=== PATIENT | male | born 1980 | race African-American/Black ===

== ENCOUNTER 2016-06-08 01:30 | Emergency (ER) | payer OTHER ==
[~2016-06-08] VITALS: Ht 180.3 cm; Wt 113.7 kg
[2016-06-08 01:42] VITALS: TEMP 36.8; Ht 180.3 cm; Wt 113.7 kg
[2016-06-08 01:59] LABS: URINE APPEARANCE CLEAR (CLEAR); URINE BILIRUBIN NEG (NEG); URINE COLOR YELLOW; URINE NITRITE NEG (NEG); URINE PH 5.5 (4.5-7.5); URINE SPECIFIC GRAVITY 1.004 (1.000-1.030); UROBILINOGEN NEG (NEG); ZZUR CULT IF INDIC CLEAN CATCH NO
[2016-06-08 02:01] LABS: MANUAL MICROSCOPIC REQUIRED? NO; REVIEW REQ? NO
[2016-06-08] MEDS ORDERED: SULF800T23 PO (03:12)
[2016-06-08 03:17] VITALS: BP 146/90; PULSE 88; O2SAT 95
--- NOTE | 2016-06-10 12:17 | EMERGENCY ROOM VISIT NOTE ---
ED Visit Note First contact with patient: 01:45 CHIEF COMPLAINT: Frequent and painful urination HISTORY OF PRESENT ILLNESS: This 35 year old male presents to the emergency department complaining of increased frequency of urination, burning pain with urination, and a feeling of incomplete voiding. The patient passes very small volumes of urine with each episode of voiding. The patient does not have abdominal pain. They deny back pain, fever, or vaginal discharge. The patient has not frequent urinary tract infections in the past. Patient feels they are not at risk for STIs. REVIEW OF SYSTEMS: A 6 system review of systems was completed with positives and pertinent negatives listed in the HPI. ALLERGIES: No known allergies MEDICATIONS: No chronic medications PMH: Otherwise healthy SOCIAL HISTORY: and lives with family PHYSICAL EXAM: Vital Signs: Reviewed Nurse's notes, vital signs stable. GENERAL : Male, in no acute distress, they do not appear toxic, well-developed, well- nourished. ABDOMEN: Positive bowel sounds x 4. The abdomen is soft, mildly tender in the suprapubic area, but no masses or organs are felt. There is no CVA tenderness. The skin is clear. NEURO: Alert and oriented to person place and time. EMERGENCY DEPARTMENT COURSE: I examined the patient. His urine does not appear obviously infected. He does describe UTI symptoms. He does not feel that he is at risk for STDs, and does not wish for additional testing. I will provide him a 3 day course of Bactrim for presumed UTI. He is to follow-up with his primary care physician with any ongoing or persistent symptoms. Current/Historical Medications Scheduled Sulfamethoxazole-Trimethoprim (Bactrim Ds 800MG/160MG), 1 TAB PO BID Allergies Coded Allergies: No Known Allergies (Unverified , 06/08/16) Vital Signs Date Time Temp Pulse Resp B/P Pulse Ox O2 Delivery O2 Flow Rate FiO2 06/08/16 03:17 88 16 146/90 95 06/08/16 01:42 36.8 86 16 145/88 97 Room Air Laboratory Results Test 06/08/16 01:51 06/08/16 02:51 Urine Color YELLOW Urine Appearance CLEAR (CLEAR) Urine pH 5.5 (4.5-7.5) Urine Specific [place] 1.004 (1.000-1.030) Urine Protein NEG (NEG) Urine Glucose (UA) NEG (NEG) Urine Ketones NEG (NEG) Urine Occult Blood NEG (NEG) Urine Nitrite NEG (NEG) Urine Bilirubin NEG (NEG) Urine Urobilinogen NEG (NEG) Urine Leukocyte Esterase NEG (NEG) Bedside Glucose 101 mg/dl (70-99) Departure Information Impression Primary Impression: Symptoms involving urinary system Dispostion Home / Self-Care Condition GOOD Prescriptions Sulfamethoxazole-Trimethoprim (Bactrim Ds 800MG/160MG) 1 Tab Tab 1 TAB PO BID for 3 Days, #6 TAB Prov: Jay Jay Son PA-C 06/08/16 Referrals No Doctor, Assigned (PCP) Forms HOME CARE DOCUMENTATION FORM, IMPORTANT VISIT INFORMATION Patient Instructions A Signature Page, [facility] Additional Instructions You were seen and evaluated today on an emergency basis only. This is not a substitute for, or an effort to provide, complete comprehensive medical care. It is not possible to recognize and treat all injuries or illnesses in a single emergency department visit. For this reason it is recommended that you followup with your primary care physician next week for ongoing care and evaluation. Trimethoprim-Sulfamethoxazole(Bactrim DS): Take one pill twice daily for 3 days for your infection. All antibiotics can cause diarrhea. If this occurs and you feel worse or it does not resolve in 1-2 days follow up with your doctor or return to the Emergency Department as this could be signs of serious underlying problems. Any medication can cause an allergic reaction, stop the pills immediately and return to the ER for rash, hives, breathing difficulties, or swelling. You are welcome to return to the emergency department anytime with new, worsening, or concerning symptoms.
[2016-06-23] MEDS ORDERED: OXYC-57 PO (14:38)
[2016-06-23] MEDS ORDERED: URC10 PO (14:38)
[2016-06-23] MEDS ORDERED: SODI650T9 PO (14:38)
[2016-06-23] MEDS ORDERED: FLM4 PO (14:38)
[2016-06-23] MEDS ORDERED: ATV1 PO (14:38)
[2016-06-23] MEDS ORDERED: ALL100 PO (14:38)
== END 2016-06-08 03:18 | disposition home or self-care (01) ==
LOC: C.EDB 01:31 → C.EDA 03:18
DX: R35.0 Frequency of micturition (principal); R30.9 Painful micturition, unspecified; R39.89 Other symptoms and signs involving the genitourinary system

== ENCOUNTER 2016-06-19 09:15 | Inpatient (IN) | payer OTHER ==
[~2016-06-19] VITALS: Ht 180.3 cm; Wt 110.8 kg
[2016-06-19] MEDS ORDERED: SODIUM CHLORIDE 0.9% 1000ML 1,000 ML IV STA (09:53)
[2016-06-19] MEDS ORDERED: SODIUM CHLORIDE 0.9% 1000ML 500 ML IV STA (09:53)
--- NOTE | 2016-06-19 10:26 | DIAGNOSTIC IMAGING REPORT ---
CHEST ONE VIEW PORTABLE CLINICAL HISTORY: Flank pain and hematuria. COMPARISON STUDY: Chest radiograph October 31, 2006. FINDINGS: Lung volumes are normal. Lungs are clear. There is no pneumothorax or pleural effusion. Pulmonary vascularity is normal. Cardiac size is normal. Mediastinal contours are normal. IMPRESSION: No acute cardiopulmonary findings. Electronically signed by: Hemal Mcclain M.D. 06/19/2016 10:24 AM Dictated Date/Time: 06/19/2016 10:24 AM
--- NOTE | 2016-06-19 10:44 | DIAGNOSTIC IMAGING REPORT ---
CT HEAD WITHOUT CONTRAST (CT) CLINICAL HISTORY: HEADACHE COMPARISON STUDY: CT scan dated 09/10/2009 TECHNIQUE: Axial CT of the brain is performed from the vertex to the skull base. IV contrast was not administered for this examination. CT DOSE: 638.56 mGycm FINDINGS: No intra or extra-axial mass lesions are visualized. There is no CT evidence of acute cortical infarction. There is no evidence of midline shift. There is no acute hemorrhage. No calvarial fractures are visualized. The previously described 5 mm focus of decreased attenuation within the right frontal white matter is not clearly visualized on the current study There is no evidence of pathologic ventricular dilatation. There is no evidence of acute sinusitis IMPRESSION: No acute intracranial findings Electronically signed by: Tony Montes M.D. 06/19/2016 10:42 AM Dictated Date/Time: 06/19/2016 10:41 AM
--- NOTE | 2016-06-19 10:50 | DIAGNOSTIC IMAGING REPORT ---
CT SCAN OF THE ABDOMEN AND PELVIS WITHOUT IV CONTRAST CLINICAL HISTORY: Flank pain and hematuria. COMPARISON STUDY: No priors. TECHNIQUE: CT scan of the abdomen and pelvis is performed from the lung bases to the proximal femora. Images are reviewed in the axial, sagittal, and coronal planes. IV contrast was not administered for this examination. Automated dose control exposure was utilized. CT DOSE: 1049.33 mGycm FINDINGS: Lung bases: The heart is top normal in size and without pericardial effusion. There is no airspace consolidation or pleural effusion. A 4 mm pleural-based nodule in the right lower lobe and a 3 mm pleural-based nodule in the right middle lobe are seen on images #11. These are of doubtful significance in this age group. There is a small hiatal hernia. Liver: The unenhanced liver is enlarged, measuring 22 cm in length. The liver demonstrates diffusely diminished attenuation consistent with hepatic steatosis. There is no intrahepatic biliary ductal dilatation. Gallbladder: Unremarkable. Spleen: The spleen is enlarged, measuring 14.6 cm in length. Pancreas: Unremarkable. Adrenal glands: Unremarkable. Kidneys: The unenhanced kidneys are normal in size. There is a 10 mm obstructing calculus in the distal left ureter located approximately 2.5 cm above the vesicoureteral junction. This is best seen on axial image #432, and this causes mild left hydroureteronephrosis. There are least 2 additional nonobstructing left renal calculi measuring up to 5 mm. A 3 mm nonobstructing calculus is seen in the right upper pole. There is no right-sided hydronephrosis. There is no evidence of contour deforming renal mass lesion. Abdominal vasculature: The abdominal aorta is normal in course and caliber. Bowel: The small bowel and colon are normal in course and caliber. The appendix is well-visualized and normal. Peritoneum: There is no intraperitoneal free air or abdominal ascites. There is a small fat-containing umbilical hernia. Lymphadenopathy: There is bulky upper abdominal, retroperitoneal, and iliac chain lymphadenopathy. A gastrohepatic node on image #129 measures 1.5 x 2.8 cm. A lymph node in the davy hepatis on image #170 measures 2.8 x 2.5 cm. A left periaortic node on image #258 measures 3.2 x 1.6 cm, and a right iliac chain node on image #320 measures 3.3 x 2.2 cm. A right external iliac chain node on image #444 measures 3.2 x 1.7 cm. There are numerous mildly enlarged mesenteric nodes. A node on image #187 measures 1.5 x 1.2 cm. Mildly enlarged pelvic sidewall nodes are identified. A left pelvic sidewall node on image #1423 measures 1.5 x 1.1 cm. No pathologically enlarged inguinal lymph nodes are identified. Pelvic viscera: The bladder, prostate, and seminal vesicles are normal as visualized. There is a fat-containing right inguinal hernia. Skeletal structures: No lytic or blastic lesions are seen. IMPRESSION: 1. There is a 10 mm obstructing calculus in the distal left ureter approximately 2.5 cm above the vesicoureteral junction. This causes mild left hydroureteronephrosis. 2. Additional bilateral nonobstructing renal calculi as above. 3. Bulky abdominopelvic lymphadenopathy as above, greatest involving the upper abdominal, retroperitoneal, and iliac chains. The appearance is highly concerning for a lymphoproliferative disorder. 4. Splenomegaly. 5. Hepatomegaly and hepatic steatosis. 6. Additional changes as above. Electronically signed by: Aleksandr Hunter M.D. 06/19/2016 10:48 AM Dictated Date/Time: 06/19/2016 10:37 AM
[2016-06-19 10:51] LABS: BASO % 0.2 %; BASO ABS # 0.01 K/uL (0-0.2); EOS % 10.5 %; HEMATOCRIT 42.8 % (42-52); IG% 0.6 %; LYMPH % 32.4 %; LYMPH ABS # 2.12 K/uL (1.2-3.4); MEAN CELL VOLUME 72.8 fL (80-100); MEAN CORPUSCULAR HEMOGLOBIN 25.5 pg (25-34); MEAN PLATELET VOLUME 10.4 fL (7.4-10.4); NEUT % 43.3 %; PLATELET COUNT 231 K/uL (130-400); RED BLOOD COUNT 5.88 M/uL (4.7-6.1); WHITE BLOOD COUNT 6.55 K/uL (4.8-10.8)
[2016-06-19 11:11] LABS: URINE APPEARANCE CLEAR (CLEAR); URINE BILIRUBIN NEG (NEG); URINE COLOR YELLOW; URINE NITRITE NEG (NEG); URINE SPECIFIC GRAVITY 1.021 (1.000-1.030); UROBILINOGEN NEG (NEG); ZZUR CULT IF INDIC CLEAN CATCH NO
[2016-06-19 11:11] LABS: BUN/CREATININE RATIO 14.8 (10-20); CALCIUM 9.4 mg/dl (8.5-10.1); MAGNESIUM 2.1 mg/dl (1.8-2.4); POTASSIUM 3.8 mmol/L (3.5-5.1)
[2016-06-19 11:18] LABS: MANUAL MICROSCOPIC REQUIRED? NO; REVIEW REQ? NO
[2016-06-19 11:19] LABS: ALB/GLOB RATIO 0.9 (0.9-2); THYROID STIMULATING HORMONE 4.78 uIu/ml (0.300-4.500)
[2016-06-19 11:24] LABS: COMPLETE YES
[2016-06-19] MEDS ORDERED: ZOLPIDEM TARTRATE 5 MG TAB PO PRN (11:45)
[2016-06-19] MEDS ORDERED: ALUMINUM/MAGNESIUM/SIMETH (MAALOX MAX) 30 ML UDC PO PRN (11:45)
[2016-06-19] MEDS ORDERED: MAGNESIUM HYDROXIDE SUSP 30 ML UDC PO PRN (11:45)
[2016-06-19] MEDS ORDERED: ACETAMINOPHEN 325 MG TAB PO PRN (11:45)
[2016-06-19] MEDS ORDERED: MoRPHine SULFATE 2 MG/ML CARP IV PRN (11:45)
[2016-06-19] MEDS ORDERED: ONDANSETRON INJ 2 MG/ML 2 ML VIAL IV PRN (11:45)
[2016-06-19 11:53] LABS: LYME DISEASE AB IGG NEG (NEG); LYME DISEASE AB IGM NEG (NEG)
--- NOTE | 2016-06-19 12:12 | History and Physical ---
History & Physical Date & Time of Service: Jun 19, 2016 at 12:08 Chief Complaint: Kidney Stones Primary Care Physician: No Doctor, Assigned History of Present Illness Source: patient, hospital records 35 year old male with non-significant past medical history who presents to the ER with chief complaint of intermittent stabbing pains to his right back since passing a kidney stone last week. Currently, while resting, the patient denies being in significant discomfort, however his pain is exacerbated with standing, and reaches a 7/10 on the pain scale of 0-10. Prior to passing the kidney stone last week, patient visited the ED on June 08 as he was having dysuria and urinary retention. Patient was placed on Bactrim for presumed UTI at that time, but he did not have any imaging done. The patient states that he did take the Bactrim & recently passed first kidney stone last week. He has been experiencing abdominal pain/cramps, back spasms, Vague numbness/ tingling of the upper & lower extremities especially at night time. Denied any recent travel. Social History Smoking Status: Never Smoker Drug Use: none Occupational Status: employed [employer] History of MDRO: No Allergies Coded Allergies: No Known Allergies (Unverified , 06/19/16) Home Medications No Active Prescriptions or Reported Meds Review of Systems See HPI for pertinent positives & negatives. A total of 10 systems reviewed and were otherwise negative. Physical Exam Vital Signs Date Time Temp Pulse Resp B/P Pulse Ox O2 Delivery O2 Flow Rate FiO2 06/19/16 11:19 63 20 113/64 96 Room Air 06/19/16 09:18 37.0 72 18 130/86 98 Room Air Diagnostics Laboratory Results Results Past 24 Hours Test 06/19/16 10:00 06/19/16 10:15 Range/Units Urine Color YELLOW Urine Appearance CLEAR CLEAR Urine pH 5.0 4.5-7.5 Urine Specific [place] 1.021 1.000-1.030 Urine Protein NEG NEG Urine Glucose (UA) NEG NEG Urine Ketones TRACE NEG Urine Occult Blood NEG NEG Urine Nitrite NEG NEG Urine Bilirubin NEG NEG Urine Urobilinogen NEG NEG Urine Leukocyte Esterase TRACE NEG Urine WBC (Auto) 1-5 0-5 /hpf Urine RBC (Auto) 0-4 0-4 /hpf Urine Hyaline Casts (Auto) 5-10 0-5 /lpf Urine Epithelial Cells (Auto) 10-20 0-5 /lpf Urine Bacteria (Auto) NEG NEG White Blood Count 6.55 4.8-10.8 K/uL Red Blood Count 5.88 4.7-6.1 M/uL Hemoglobin 15.0 14.0-18.0 g/dL Hematocrit 42.8 42-52 % Mean Corpuscular Volume 72.8 80-100 fL Mean Corpuscular Hemoglobin 25.5 25-34 pg Mean Corpuscular Hemoglobin Concent 35.0 32-36 g/dl Platelet Count 231 130-400 K/uL Mean Platelet Volume 10.4 7.4-10.4 fL Neutrophils (%) (Auto) 43.3 % Lymphocytes (%) (Auto) 32.4 % Monocytes (%) (Auto) 13.0 % Eosinophils (%) (Auto) 10.5 % Basophils (%) (Auto) 0.2 % Neutrophils # (Auto) 2.84 1.4-6.5 K/uL Lymphocytes # (Auto) 2.12 1.2-3.4 K/uL Monocytes # (Auto) 0.85 0.11-0.59 K/uL Eosinophils # (Auto) 0.69 0-0.5 K/uL Basophils # (Auto) 0.01 0-0.2 K/uL RDW Standard Deviation 37.0 36.4-46.3 fL RDW Coefficient of Variation 14.0 11.5-14.5 % Immature Granulocyte % (Auto) 0.6 % Immature Granulocyte # (Auto) 0.04 0.00-0.02 K/uL Red Blood Cell Morphology Unremarkable Erythrocyte Sedimentation Rate 18 0-14 mm/hr Sodium Level 139 136-145 mmol/L Potassium Level 3.8 3.5-5.1 mmol/L Chloride Level 103 98-107 mmol/L Carbon Dioxide Level 26 21-32 mmol/L Anion Gap 10.0 3-11 mmol/L Blood Urea Nitrogen 15 7-18 mg/dl Creatinine 1.00 0.60-1.40 mg/dl Est Creatinine Clear Calc Drug Dose 131.7 ml/min Estimated GFR () 113.3 Estimated GFR (Non- 97.8 BUN/Creatinine Ratio 14.8 10-20 Random Glucose 91 70-99 mg/dl Calcium Level 9.4 8.5-10.1 mg/dl Magnesium Level 2.1 1.8-2.4 mg/dl Total Bilirubin 0.4 0.2-1 mg/dl Aspartate Amino Transf (AST/SGOT) 43 15-37 U/L Alanine Aminotransferase (ALT/SGPT) 52 12-78 U/L Alkaline Phosphatase 91 45-117 U/L Troponin I 0.018 0-0.045 ng/ml Total Protein 8.6 6.4-8.2 gm/dl Albumin 4.1 3.4-5.0 gm/dl Globulin 4.5 2.5-4.0 gm/dl Albumin/Globulin Ratio 0.9 0.9-2 Lipase 235 73-393 U/L Thyroid Stimulating Hormone (TSH) 4.780 0.300-4.500 uIu/ml Free Thyroxine 1.04 0.80-1.60 ng/dl Lyme Disease IgG Antibody NEG NEG Lyme Disease IgM Antibody NEG NEG Microbiology Results 06/19/16 Urine Culture, Received Pending Diagnostic Radiology CT HEAD WITHOUT CONTRAST (CT) CLINICAL HISTORY: HEADACHE COMPARISON STUDY: CT scan dated 09/10/2009 FINDINGS: No intra or extra-axial mass lesions are visualized. There is no CT evidence of acute cortical infarction. There is no evidence of midline shift. There is no acute hemorrhage. No calvarial fractures are visualized. The previously described 5 mm focus of decreased attenuation within the right frontal white matter is not clearly visualized on the current study There is no evidence of pathologic ventricular dilatation. There is no evidence of acute sinusitis IMPRESSION: No acute intracranial findings CHEST ONE VIEW PORTABLE CLINICAL HISTORY: Flank pain and hematuria. COMPARISON STUDY: Chest radiograph October 31, 2006. FINDINGS: Lung volumes are normal. Lungs are clear. There is no pneumothorax or pleural effusion. Pulmonary vascularity is normal. Cardiac size is normal. Mediastinal contours are normal. IMPRESSION: No acute cardiopulmonary findings. CT SCAN OF THE ABDOMEN AND PELVIS WITHOUT IV CONTRAST CLINICAL HISTORY: Flank pain and hematuria. COMPARISON STUDY: No priors. FINDINGS: Lung bases: The heart is top normal in size and without pericardial effusion.There is no airspace consolidation or pleural effusion. A 4 mm pleural- based nodule in the right lower lobe and a 3 mm pleural-based nodule in the right middle lobe are seen on images #11. These are of doubtful significance in this age group. There is a small hiatal hernia. Liver: The unenhanced liver is enlarged, measuring 22 cm in length. The liver demonstrates diffusely diminished attenuation consistent with hepatic steatosis. There is no intrahepatic biliary ductal dilatation. Gallbladder: Unremarkable. Spleen: The spleen is enlarged, measuring 14.6 cm in length. Pancreas: Unremarkable. Adrenal glands: Unremarkable. Kidneys: The unenhanced kidneys are normal in size. There is a 10 mm obstructing calculus in the distal left ureter located approximately 2.5 cm above the vesicoureteral junction. This is best seen on axial image #432, and this causes mild left hydroureteronephrosis. There are least 2 additional nonobstructing left renal calculi measuring up to 5 mm. A 3 mm nonobstructing calculus is seen in the right upper pole. There is no right-sided hydronephrosis. There is no evidence of contour deforming renal mass lesion. Abdominal vasculature: The abdominal aorta is normal in course and caliber. Bowel: The small bowel and colon are normal in course and caliber. The appendix is well-visualized and normal. Peritoneum: There is no intraperitoneal free air or abdominal ascites. There is a small fat-containing umbilical hernia. Lymphadenopathy: There is bulky upper abdominal, retroperitoneal, and iliac chain lymphadenopathy. A gastrohepatic node on image #129 measures 1.5 x 2.8 cm. A lymph node in the davy hepatis on image #170 measures 2.8 x 2.5 cm. A left periaortic node on image #258 measures 3.2 x 1.6 cm, and a right iliac chain node on image #320 measures 3.3 x 2.2 cm. A right external iliac chain node on image #444 measures 3.2 x 1.7 cm. There are numerous mildly enlarged mesenteric nodes. A node on image #187 measures 1.5 x 1.2 cm. Mildly enlarged pelvic sidewall nodes are identified. A left pelvic sidewall node on image # 1423 measures 1.5 x 1.1 cm. No pathologically enlarged inguinal lymph nodes are identified. Pelvic viscera: The bladder, prostate, and seminal vesicles are normal as visualized. There is a fat-containing right inguinal hernia. Skeletal structures: No lytic or blastic lesions are seen. IMPRESSION: 1. There is a 10 mm obstructing calculus in the distal left ureter approximately 2.5 cm above the vesicoureteral junction. This causes mild left hydroureteronephrosis. 2. Additional bilateral nonobstructing renal calculi as above. 3. Bulky abdominopelvic lymphadenopathy as above, greatest involving the upper abdominal, retroperitoneal, and iliac chains. The appearance is highly concerning for a lymphoproliferative disorder. 4. Splenomegaly. 5. Hepatomegaly and hepatic steatosis. 6. Additional changes as above. CXR normal Impression Assessment and Plan Left Sided Obstructing Renal Stone: Admit to medical floor. -Started IVF -Pain medications as per need -Started Rocephin empirically as will be going for Urology procedure -Urology consultation Bulky Abdominopelvic Lymphadenopathy: Highly suspicious for Lymphoma. -Ordered CT Chest asa well. -Involve Hematology/Oncology as needed -No family history of lymphoma -Ordered Ct Chest -Check Uric acid Patient will be followed by Dr. Baker. Level of Care Med/Surg Resuscitation Status FULL RESUSCITATION VTE Prophylaxis VTE Risk Assessment Done? Y/N: Yes Risk Level: Low Given or contraindicated: SCD's
[2016-06-19 12:30] VITALS: BP 143/88; PULSE 73; TEMP 36.7; O2SAT 99
--- NOTE | 2016-06-19 12:32 | EMERGENCY ROOM VISIT NOTE ---
History Report prepared by Enedina: Kavya Strong Under the Supervision of: Dr. Aleksandr Hay M.D. First contact with patient: 09:51 Chief Complaint: OTHER COMPLAINT Stated Complaint: KIDNEY STONES History of Present Illness The patient is a 35 year old male who presents to the Emergency Room with complaints of intermittent stabbing pains to his right back since passing a kidney stone last week. Currently, while resting, the patient denies being in significant discomfort, however his pain seems to be exacerbated with standing, and reaches a 7/10 on the pain scale. Prior to passing the kidney stone last week, patient visited the ED on June 08 as he was having dysuria and urinary retention. Patient was placed on Bactrim for presumed UTI at that time, but he did not have any imaging done. After returning home, patient states that he passed a kidney stone a few days later, which he thought may have have been causing his urinary symptoms. However, though he had passed the stone, he then developed intermittent stabbing pains to his right back, as well as sharp pains to his right abdomen. Over the past week, the patient also notes that he has been experiencing intermittent burning/tingling pains radiating from his right knee, down to his right foot, as well as his left foot. He has noticed these symptoms to be exacerbated after eating, and then persist throughout the night, making it difficult for him to sleep. Patient also notes that this morning, he experienced an episode of numbness radiating from his left neck, down to his left waist, and it became difficult for him to swallow at that time as well. These symptoms lasted for about an hour and a half before resolving on their own. Patient states that he has felt nauseous, but he denies vomiting or passing any movements of diarrhea. He also denies fevers, chills, chest pain, shortness of breath, or swelling to his extremities. Patient denies possibility of having any tick bites as he does not spend time outside. He denies family history of kidney stones and states that the one he passed last week was the first one he had experienced. Source of History: patient Onset: over the past week Position: back (right) Symptom Intensity: no current pain Quality: stabbing Timing: intermittent Modifying Factors (Worsening): other (standing) Associated Symptoms: + nausea, + numbness (left neck - left waist. Right knee-right foot and left foot. ), + urinary symptoms, No SOB, No chest pain, No chills, No diarrhea, No fevers, No vomiting Note: Patient had difficulty swallowing this morning, now resolved. Review of Systems See HPI for pertinent positives & negatives. A total of 10 systems reviewed and were otherwise negative. Past Medical & Surgical No known past medical problems. Social History Smoking Status: Never Smoker Drug Use: none Marital Status: Housing Status: lives with family Occupation Status: employed Current/Historical Medications No Active Prescriptions or Reported Meds Allergies Coded Allergies: No Known Allergies (Unverified , 06/19/16) Physical Exam Vital Signs Date Time Temp Pulse Resp B/P Pulse Ox O2 Delivery O2 Flow Rate FiO2 06/19/16 11:19 63 20 113/64 96 Room Air 06/19/16 09:18 37.0 72 18 130/86 98 Room Air Physical Exam GENERAL: Patient is in no acute distress. HEENT: No acute trauma, normocephalic atraumatic, mucous membranes moist, no nasal congestion, no scleral icterus. NECK: No stridor, no adenopathy, no meningismus, trachea is midline. LUNGS: Clear to auscultation bilaterally, no wheeze, no rhonchi, breath sounds equal. HEART: Without murmurs gallops or rubs, regular rate and rhythm. ABDOMEN: Soft, nontender, bowel sounds positive, no hernias, no peritonitis. EXTREMITIES: No cyanosis or edema, full range of motion of all the joints without pain or difficulty, no signs for acute trauma. Strong dorsalis pedis pulses, bilaterally. NEUROLOGIC: Oriented x 3, no acute motor or sensory deficits, no focal weakness. Cannot elicit reflexes in either knee. 2/4 Achilles reflexes, bilaterally. SKIN: No rash, no jaundice, no diaphoresis. Medical Decision & Procedures ER Provider Diagnostic Interpretation: CT results as stated below per my review and radiologist interpretation: X-ray results as stated below per interpretation by me and the radiologist: CT HEAD WITHOUT CONTRAST (CT) CLINICAL HISTORY: HEADACHE COMPARISON STUDY: CT scan dated 09/10/2009 TECHNIQUE: Axial CT of the brain is performed from the vertex to the skull base. IV contrast was not administered for this examination. CT DOSE: 638.56 mGycm FINDINGS: No intra or extra-axial mass lesions are visualized. There is no CT evidence of acute cortical infarction. There is no evidence of midline shift. There is no acute hemorrhage. No calvarial fractures are visualized. The previously described 5 mm focus of decreased attenuation within the right frontal white matter is not clearly visualized on the current study There is no evidence of pathologic ventricular dilatation. There is no evidence of acute sinusitis IMPRESSION: No acute intracranial findings Electronically signed by: Tony Montes M.D. 06/19/2016 10:42 AM Dictated Date/Time: 06/19/2016 10:41 AM CHEST ONE VIEW PORTABLE CLINICAL HISTORY: Flank pain and hematuria. COMPARISON STUDY: Chest radiograph October 31, 2006. FINDINGS: Lung volumes are normal. Lungs are clear. There is no pneumothorax or pleural effusion. Pulmonary vascularity is normal. Cardiac size is normal. Mediastinal contours are normal. IMPRESSION: No acute cardiopulmonary findings. Electronically signed by: Hemal Mcclain M.D. 06/19/2016 10:24 AM Dictated Date/Time: 06/19/2016 10:[address] SCAN OF THE ABDOMEN AND PELVIS WITHOUT IV CONTRAST CLINICAL HISTORY: Flank pain and hematuria. COMPARISON STUDY: No priors. TECHNIQUE: CT scan of the abdomen and pelvis is performed from the lung bases to the proximal femora. Images are reviewed in the axial, sagittal, and coronal planes. IV contrast was not administered for this examination. Automated dose control exposure was utilized. CT DOSE: 1049.33 mGycm FINDINGS: Lung bases: The heart is top normal in size and without pericardial effusion. There is no airspace consolidation or pleural effusion. A 4 mm pleural-based nodule in the right lower lobe and a 3 mm pleural-based nodule in the right middle lobe are seen on images #11. These are of doubtful significance in this age group. There is a small hiatal hernia. Liver: The unenhanced liver is enlarged, measuring 22 cm in length. The liver demonstrates diffusely diminished attenuation consistent with hepatic steatosis. There is no intrahepatic biliary ductal dilatation. Gallbladder: Unremarkable. Spleen: The spleen is enlarged, measuring 14.6 cm in length. Pancreas: Unremarkable. Adrenal glands: Unremarkable. Kidneys: The unenhanced kidneys are normal in size. There is a 10 mm obstructing calculus in the distal left ureter located approximately 2.5 cm above the vesicoureteral junction. This is best seen on axial image #432, and this causes mild left hydroureteronephrosis. There are least 2 additional nonobstructing left renal calculi measuring up to 5 mm. A 3 mm nonobstructing calculus is seen in the right upper pole. There is no right-sided hydronephrosis. There is no evidence of contour deforming renal mass lesion. Abdominal vasculature: The abdominal aorta is normal in course and caliber. Bowel: The small bowel and colon are normal in course and caliber. The appendix is well-visualized and normal. Peritoneum: There is no intraperitoneal free air or abdominal ascites. There is a small fat-containing umbilical hernia. Lymphadenopathy: There is bulky upper abdominal, retroperitoneal, and iliac chain lymphadenopathy. A gastrohepatic node on image #129 measures 1.5 x 2.8 cm. A lymph node in the davy hepatis on image #170 measures 2.8 x 2.5 cm. A left periaortic node on image #258 measures 3.2 x 1.6 cm, and a right iliac chain node on image #320 measures 3.3 x 2.2 cm. A right external iliac chain node on image #444 measures 3.2 x 1.7 cm. There are numerous mildly enlarged mesenteric nodes. A node on image #187 measures 1.5 x 1.2 cm. Mildly enlarged pelvic sidewall nodes are identified. A left pelvic sidewall node on image #1423 measures 1.5 x 1.1 cm. No pathologically enlarged inguinal lymph nodes are identified. Pelvic viscera: The bladder, prostate, and seminal vesicles are normal as visualized. There is a fat-containing right inguinal hernia. Skeletal structures: No lytic or blastic lesions are seen. IMPRESSION: 1. There is a 10 mm obstructing calculus in the distal left ureter approximately 2.5 cm above the vesicoureteral junction. This causes mild left hydroureteronephrosis. 2. Additional bilateral nonobstructing renal calculi as above. 3. Bulky abdominopelvic lymphadenopathy as above, greatest involving the upper abdominal, retroperitoneal, and iliac chains. The appearance is highly concerning for a lymphoproliferative disorder. 4. Splenomegaly. 5. Hepatomegaly and hepatic steatosis. 6. Additional changes as above. Electronically signed by: Aleksandr Hunter M.D. 06/19/2016 10:48 AM Dictated Date/Time: 06/19/2016 10:37 AM Laboratory Results Test 06/19/16 10:00 06/19/16 10:15 Urine WBC (Auto) 1-5 /hpf (0-5) Urine RBC (Auto) 0-4 /hpf (0-4) Urine Hyaline Casts (Auto) 5-10 /lpf (0-5) Urine Epithelial Cells (Auto) 10-20 /lpf (0-5) Urine Bacteria (Auto) NEG (NEG) Erythrocyte Sedimentation Rate 18 mm/hr (0-14) Uric Acid 7.4 mg/dl (2.6-7.2) Total Bilirubin 0.4 mg/dl (0.2-1) Aspartate Amino Transf (AST/SGOT) 43 U/L (15-37) Alanine Aminotransferase (ALT/SGPT) 52 U/L (12-78) Alkaline Phosphatase 91 U/L (45-117) Troponin I 0.018 ng/ml (0-0.045) Total Protein 8.6 gm/dl (6.4-8.2) Albumin 4.1 gm/dl (3.4-5.0) Globulin 4.5 gm/dl (2.5-4.0) Albumin/Globulin Ratio 0.9 (0.9-2) Lipase 235 U/L (73-393) Thyroid Stimulating Hormone (TSH) 4.780 uIu/ml (0.300-4.500) Free Thyroxine 1.04 ng/dl (0.80-1.60) Lyme Disease IgG Antibody NEG (NEG) Lyme Disease IgM Antibody NEG (NEG) Laboratory results reviewed by me. Medications Administered Medications (Trade) Dose Ordered Sig/Billy Route Start Time Stop Time Status Last Admin Dose Admin Sodium Chloride 500 ml @ 999 mls/hr Q31M STAT IV 06/19/16 09:53 06/19/16 10:23 DC 06/19/16 10:40 999 MLS/HR Sodium Chloride (Nss 1000ml) 1,000 ml @ 200 mls/hr Q5H STAT IV 06/19/16 09:53 06/19/16 13:19 DC 06/19/16 10:40 200 MLS/HR ECG Indication: other Rate (beats per minute): 69 Rhythm: sinus rhythm Findings: 1st degree AV block, no acute ischemic change, no ectopy, other (Non specific T wave changes.) ED Course 0952: The patient was evaluated in room C4. A complete history and physical exam was performed. 0953: NSS 1,000 ml @ 200 mls/hr IV and NSS 500 ml @ 999 mls/hr IV were ordered. 1122: Upon reevaluation, the patient appeared to be resting comfortably. I updated him on the results of his radiology reports and lab tests. The hospitalist will be contacted. 1135: After discussion with Dr. Thakkar, the patient will continue to be evaluated by the [facility] hospitalist for further management. The patient verbalized his understanding and agreement with this treatment plan. Medical Decision The patient is a 35 year old male who presents to the ED with complaints of intermittent stabbing pains to his right back. Differential diagnoses considered include renal colic, electrolyte imbalance, anemia, renal failure, malignancy, infection, MS, transverse myelitis, stroke, thyroid disorder. There is no leukocytosis or concerning anemia. No significant electrolyte abnormality, kidney failure, hepatitis. The patient appears to be in a euthyroid state. Sedimentation rate is not significantly elevated. Urinalysis does not show infection or significant hematuria. Lyme disease testing was negative. Brain CT shows no acute bleed or mass effect. Chest film shows no pneumonia or mediastinal widening. EKG shows a sinus rhythm, no ischemia. Cardiac enzyme testing 1 is not consistent with acute cardiac injury. Abdominal and pelvis CT shows a large left sided ureteral stone. Lymphadenopathy was also noted within the abdomen. The patient received IV saline, he is resting comfortably. He has not required anything for pain. The patient has a very large left ureteral stone. This may explain some of his trouble. The marked lymph gland enlargement about the abdomen I think could explain some of his other symptoms and complaints. Given the findings, further workup in the hospital is required. I spoke to the patient, I talked with the nurse case management. The on-call hospitalist was consulted. Consults Time Called: 112 Consulting Physician: Dr. Thakkar - [facility] Returned Call: [phone] Discussed the patient's case. He will continue to be evaluated by the [facility] hospitalist for further management. Impression Primary Impression: Renal colic Additional Impression: Intra-abdominal lymphadenopathy Scribe Attestation The scribe's documentation has been prepared under my direction and personally reviewed by me in its entirety. I confirm that the note above accurately reflects all work, treatment, procedures, and medical decision making performed by me. Departure Information Dispostion Being Evaluated By Hospitalist (STEFANIA) Prescriptions No Active Prescriptions or Reported Meds Referrals No Doctor, Assigned (PCP) Problem Qualifiers
[2016-06-19 12:37] VITALS: BP 143/88; PULSE 73; TEMP 36.7; Ht 180.3 cm; Wt 110.8 kg
[2016-06-19] MEDS: SODIUM CHLORIDE 0.9% 1000ML 1,000 ML IV SCH (13:27)
[2016-06-19] MEDS: CEFTRIAXONE SOD INJ 1 GM in DEXTROSE 5% ADD-VANTAGE 50ML 50 ML IV SCH (13:49)
--- NOTE | 2016-06-19 20:55 | Urology Consultation ---
History General Date of Service: Jun 19, 2016. Chief Complaint: left ureteral stone Primary Care Physician: No Doctor, Assigned Pt seen a urologist before?: No History of Present Illness I am asked by Dr Thakkar to evaluate and treat kidney stone. Patient is admitted with constitutional symptoms. He has chills at night. He is not fatigued. He has some deep right back pain but no left renal colic. No nausea or emesis. He had gross hematuria and passed a stone first week in June 2016. He has been free of colic since then. He does c/o leg burning at night and numbness of the left upper torso and arm. Imaging Imaging: CT Images were done at: ct shows diffuse LAD bilateral abdomen and RP plus splenomegaly., bilaterl Laboratory Results Past 24 Hours Test 06/19/16 10:00 06/19/16 10:15 Range/Units Urine Color YELLOW Urine Appearance CLEAR CLEAR Urine pH 5.0 4.5-7.5 Urine Specific Crystal 1.021 1.000-1.030 Urine Protein NEG NEG Urine Glucose (UA) NEG NEG Urine Ketones TRACE NEG Urine Occult Blood NEG NEG Urine Nitrite NEG NEG Urine Bilirubin NEG NEG Urine Urobilinogen NEG NEG Urine Leukocyte Esterase TRACE NEG Urine WBC (Auto) 1-5 0-5 /hpf Urine RBC (Auto) 0-4 0-4 /hpf Urine Hyaline Casts (Auto) 5-10 0-5 /lpf Urine Epithelial Cells (Auto) 10-20 0-5 /lpf Urine Bacteria (Auto) NEG NEG White Blood Count 6.55 4.8-10.8 K/uL Red Blood Count 5.88 4.7-6.1 M/uL Hemoglobin 15.0 14.0-18.0 g/dL Hematocrit 42.8 42-52 % Mean Corpuscular Volume 72.8 80-100 fL Mean Corpuscular Hemoglobin 25.5 25-34 pg Mean Corpuscular Hemoglobin Concent 35.0 32-36 g/dl Platelet Count 231 130-400 K/uL Mean Platelet Volume 10.4 7.4-10.4 fL Neutrophils (%) (Auto) 43.3 % Lymphocytes (%) (Auto) 32.4 % Monocytes (%) (Auto) 13.0 % Eosinophils (%) (Auto) 10.5 % Basophils (%) (Auto) 0.2 % Neutrophils # (Auto) 2.84 1.4-6.5 K/uL Lymphocytes # (Auto) 2.12 1.2-3.4 K/uL Monocytes # (Auto) 0.85 0.11-0.59 K/uL Eosinophils # (Auto) 0.69 0-0.5 K/uL Basophils # (Auto) 0.01 0-0.2 K/uL RDW Standard Deviation 37.0 36.4-46.3 fL RDW Coefficient of Variation 14.0 11.5-14.5 % Immature Granulocyte % (Auto) 0.6 % Immature Granulocyte # (Auto) 0.04 0.00-0.02 K/uL Red Blood Cell Morphology Unremarkable Erythrocyte Sedimentation Rate 18 0-14 mm/hr Sodium Level 139 136-145 mmol/L Potassium Level 3.8 3.5-5.1 mmol/L Chloride Level 103 98-107 mmol/L Carbon Dioxide Level 26 21-32 mmol/L Anion Gap 10.0 3-11 mmol/L Blood Urea Nitrogen 15 7-18 mg/dl Creatinine 1.00 0.60-1.40 mg/dl Est Creatinine Clear Calc Drug Dose 131.7 ml/min Estimated GFR () 113.3 Estimated GFR (Non- 97.8 BUN/Creatinine Ratio 14.8 10-20 Random Glucose 91 70-99 mg/dl Uric Acid 7.4 2.6-7.2 mg/dl Calcium Level 9.4 8.5-10.1 mg/dl Magnesium Level 2.1 1.8-2.4 mg/dl Total Bilirubin 0.4 0.2-1 mg/dl Aspartate Amino Transf (AST/SGOT) 43 15-37 U/L Alanine Aminotransferase (ALT/SGPT) 52 12-78 U/L Alkaline Phosphatase 91 45-117 U/L Troponin I 0.018 0-0.045 ng/ml Total Protein 8.6 6.4-8.2 gm/dl Albumin 4.1 3.4-5.0 gm/dl Globulin 4.5 2.5-4.0 gm/dl Albumin/Globulin Ratio 0.9 0.9-2 Lipase 235 73-393 U/L Thyroid Stimulating Hormone (TSH) 4.780 0.300-4.500 uIu/ml Free Thyroxine 1.04 0.80-1.60 ng/dl Lyme Disease IgG Antibody NEG NEG Lyme Disease IgM Antibody NEG NEG Microbiology Results 06/19/16 Urine Culture, Received Pending Labs were reviewed and are within normal limits unless listed below. Labs are available in the chart and at [facility] Problem List Medical Problems: (1) Intra-abdominal lymphadenopathy Status: Acute (2) Renal colic Status: Acute Past History no pertinent history Past Surgical History: no surgical history Family History DM Social History Hx Tobacco Use In Past Year?: No Smoking: non-smoker Alcohol: never Drug use: none Marital status: Housing status: lives with family Occupation status: employed (laid off right now) History of MDRO No Allergies Coded Allergies: No Known Allergies (Unverified , 06/19/16) Medications Home Medications: Home Meds and Scripts Medications Dose Route/Sig Max Daily Dose Days Date Category No Active Prescriptions or Reported Medications Rx Inpatient Medications: Current Inpatient Medications Medications (Trade) Dose Ordered Sig/Billy Route Start Time Stop Time Status Last Admin Dose Admin Acetaminophen (Tylenol Tab) 650 mg Q4H PRN PO 06/19/16 11:45 07/19/16 11:44 Al Hydrox/Mg Hydrox/Simethicone (Maalox Max Susp) 15 ml Q4H PRN PO 06/19/16 11:45 07/19/16 11:44 Magnesium Hydroxide (Milk Of Magnesia Susp) 30 ml Q6H PRN PO 06/19/16 11:45 07/19/16 11:44 Zolpidem Tartrate (Ambien Tab) 5 mg HSZ PRN PO 06/19/16 11:45 07/19/16 11:44 Ondansetron HCl 4 mg 4 mg Q6H PRN IV 06/19/16 11:45 07/19/16 11:44 Sodium Chloride (Nss 1000ml) 1,000 ml @ 80 mls/hr [id number] IV 06/19/16 11:45 07/19/16 11:44 06/19/16 13:27 80 MLS/HR Morphine Sulfate 2 mg 2 mg Q4H PRN IV 06/19/16 11:45 07/03/16 11:44 Ceftriaxone Sodium/Dextrose (Rocephin Inj/ Dextrose Add-[place] 50ML) 50 ml @ 100 mls/hr Q24H IV 06/19/16 14:00 06/29/16 11:44 06/19/16 13:49 100 MLS/HR Tamsulosin HCl (Flomax Cap) 0.4 mg HS PO 06/19/16 21:00 07/19/16 20:59 Review of Systems Review of Systems Constitutional: + chills, No fever, No frequent headaches, No weight loss Neurological: + numbness/tingling, No dizzy, No passing out Endocrine: + too cold, No excessive thirst, No tired/sluggish, No too hot Gastrointestinal: + abdominal pain, + indigestion, + nausea, No constipation, No diarrhea, No vomiting Cardiovascular: No chest pain, No palpitations Respiratory: No shortness of breath Male : + blood in urine, + frequent urination, + kidney stones, + painful urination Physical Exam Vital Signs: Vital Signs Past 12 Hours Date Time Temp Pulse Resp B/P Pulse Ox O2 Delivery O2 Flow Rate FiO2 06/19/16 12:47 Room Air 06/19/16 12:37 36.7 73 16 143/88 Room Air 06/19/16 12:30 36.7 73 16 143/88 99 Room Air 06/19/16 11:19 63 20 113/64 96 Room Air 06/19/16 09:18 37.0 72 18 130/86 98 Room Air Physical Exam: General Appearance: WD/WN, no apparent distress, + pertinent finding (mildly overweight) Eyes: bilateral eyes normal inspection ENT: hearing grossly normal Neck: no adenopathy, no JVD, trachea midline Respiratory/Chest: no respiratory distress, no accessory muscle use Gastrointestinal: Abdomen: normal abdomen Bladder: normal bladder Renal: normal renal Extremities: normal inspection, no pedal edema, no calf tenderness Neurologic/Psychiatric: alert, normal mood/affect, oriented x 3 Skin: normal color, warm/dry, no rash Lymphatic: no adenopathy Assessment & Plan Assessment & Plan 10mm left distal ureteral stone seems radio-lucent on 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 Plan urinary alkalinization to try to shrink stone to a passable size, 'renal function is normal and he is not in any significant renal pain so best not to have a surgical intervention at this time. Seems we have some time to try to melt the stone medically. Will follow I saw patient with Dr Lemus and we explained the finding of the enlarged lymph nodes on ct. It is possible he has a lymphoproliferative disorder as cause of the stones and the lymph nodes and his various symptoms. He will have chest ct tonight and oncology will see them tomorrow. patient and his ask for ativan for sleep tonight. He may eat normally, I do not plan any procedures for him today or tomorrow. .
[2016-06-19] MEDS ORDERED: LORAZEPAM 1 MG TAB PO STA (20:56)
[2016-06-19] MEDS: ALLOPURINOL 100 MG TAB PO SCH (21:23)
[2016-06-19] MEDS: TAMSULOSIN HCL 0.4 MG CAP PO SCH (21:23)
[2016-06-19] MEDS: SODIUM BICARBONATE 650 MG TAB PO SCH (21:24)
--- NOTE | 2016-06-19 21:24 | DIAGNOSTIC IMAGING REPORT ---
CHEST CT WITHOUT CONTRAST CT DOSE: 727.69 mGy.cm HISTORY: R/O Lymphadenopathy TECHNIQUE: Multiaxial CT images of the chest were performed without contrast. COMPARISON: Abdomen and pelvis CT 06/19/2016. FINDINGS: Please refer to the same day abdomen and pelvis CT for further evaluation of the abdominal structures. There is mediastinal lymphadenopathy. The dominant prevascular lymph node measures 1.7 x 1.1 cm. Prominent axillary lymph nodes are greater than expected for the patient's age which is also consistent with a mild lymphadenopathy. Some of these lymph nodes demonstrate a normal fatty hilum. These are borderline enlarged. Abdominal lymphadenopathy is again noted. There are few mildly enlarged anterior diaphragmatic lymph nodes. Dominant lymph node measures 12 mm. The heart is normal in size. No pleural or pericardial effusions. Normal caliber thoracic aorta. No suspicious lytic or blastic osseous lesions. No pneumothorax. The central airways are patent. The lungs are essentially clear. The dominant pathologic appearing right axillary lymph node measures 1.6 x 1.1 cm. IMPRESSION: Mild lymphadenopathy within the chest as described above. This highly suspicious for a lymphoproliferative disorder. Electronically signed by: Solomon Patterson M.D. 06/19/2016 9:22 PM Dictated Date/Time: 06/19/2016 9:17 PM
--- NOTE | 2016-06-19 23:15 | NEPHROLOGY CONSULTATION ---
DATE OF CONSULTATION: 06/19/2016 ATTENDING OF RECORD: Dr. Baker. REASON FOR CONSULTATION: Nephrolithiasis. HISTORY OF PRESENT ILLNESS: This is a 35-year-old male who recently passed his first stone in the beginning of this month and was having painful urination during that time and was treated for presumed urinary tract infection with Bactrim. The patient has been having these vague nonspecific complaints of burning of his legs, numbness of his upper extremities and lower extremities, chills. Appetite is good. No fevers, no nausea or vomiting. Currently urinating well with no obvious blood in the urine, right-sided flank pain radiating to the front has currently subsided. The patient's creatinine on admission was normal at 1 with an elevated uric acid level of 7.4. The patient's sed rate was mildly elevated at 18. UA showed 0-[address] of the abdomen and pelvis without IV contrast showed a 10 mm obstructing calculus in the distal left ureter with mild left hydroureteronephrosis. There are also small bilateral renal calculi, more impressive though was the bulky lymphadenopathy involving the upper abdominal, retroperitoneal, iliac chains highly suggestive of lymphoproliferative disorder with splenomegaly, hepatomegaly. The patient denies any smoking history. No significant weight loss. No family history of cancers. The patient is currently awaiting a CT of the chest. ROS: no anorexia, no nausea, vomiting, +right sided flank pain, no fevers, + occasional chills at night, episodes of periodic numbness of extremities, no weight loss, no chest pain, no sob, no rash or itching, all other review of systems otherwise negative. PAST MEDICAL HISTORY: Denies. PAST SURGICAL HISTORY: The patient did break his right arm and required surgery. SOCIAL HISTORY: No smoking, occasional alcohol, no drugs. FAMILY HISTORY: Significant for diabetes. No significant cancers or renal disease in family. CURRENT MEDICATIONS: Flomax 0.4 mg at night, ceftriaxone 1 gram IV q. 24, normal saline at 80 mL an hour. PHYSICAL EXAMINATION: VITAL SIGNS: Temperature 36.7, pulse 73, respiratory rate 16, blood pressure 143/88, satting 99% on room air. GENERAL: Awake, alert, oriented x3. Strong muscle build. EYES: No scleral icterus. HEENT: Moist mucous membranes. NECK: Supple. PULMONARY: Clear to auscultation. CARDIAC: Regular rate and rhythm. ABDOMEN: Bowel sounds positive, soft, nontender, nondistended. EXTREMITIES: No significant clubbing, cyanosis or edema. NEUROLOGIC: Nonfocal. Some mild tenderness in the flanks. DERMATOLOGIC: No rash or ulcers noted. LABORATORY DATA: UA with pH of 5, specific gravity 1.021, trace ketones, trace leukocyte esterase, 5-10 hyalines, 10-20 epis, 0-4 rbc's, Lyme negative. Sodium is 139, potassium is 3.8, chloride is 103, bicarb is 26, BUN is 15, creatinine is 1, glucose 91, uric acid 7.4, calcium 9.4, mag is 2.1. AST 43, ALT 52, albumin is 4.1. TSH 4.78. White count is 6.5, H\T\H 15 and 42, platelet count is 231. Urine culture is pending. Head CT was negative. Chest x-ray showed no acute findings. ASSESSMENT AND PLAN: 1. Nephrolithiasis with mild left hydro. Greatly appreciate Dr. Logan of urology for management of the kidney stone. Current plan is to alkalinize the urine. The patient with presumed uric acid stone and feel alkalinization will help melt stone and pass on its own, so hopefully to avoid stenting and/or lithotripsy. We will start the patient on potassium citrate as well as sodium bicarbonate. The patient does have elevated serum uric acid and will start the patient on allopurinol as well. Kidney function is stable. 2. Significant lymphadenopathy with splenomegaly with concerning findings of possible lymphoproliferative disorder. We have consulted hematology for further evaluation. Undergoing a chest CT at this time and respectfully defer to them for further workup. Case was discussed with Dr. Logan who is in agreement with plan. Questions answered with him and his significant other. His significant other was also helpful in providing history. Appreciate consultation. ERMELINDA
[2016-06-19 23:50] VITALS: BP 127/81; PULSE 76; TEMP 36.7; O2SAT 99
[2016-06-20] MEDS: SODIUM CHLORIDE 0.9% 1000ML 1,000 ML IV SCH ×2 (02:01→12:10)
[2016-06-20 05:42] LABS: BASO % 0.2 %; BASO ABS # 0.01 K/uL (0-0.2); EOS % 9.7 %; HEMATOCRIT 40.8 % (42-52); IG% 0.5 %; LYMPH % 28.6 %; LYMPH ABS # 1.86 K/uL (1.2-3.4); MEAN CELL VOLUME 74.3 fL (80-100); MEAN CORPUSCULAR HEMOGLOBIN 25.7 pg (25-34); MEAN CORPUSCULAR HGB CONC 34.6 g/dl (32-36); MEAN PLATELET VOLUME 10.5 fL (7.4-10.4); MONO % 13.1 %; NEUT % 47.9 %; PLATELET COUNT 233 K/uL (130-400); RED BLOOD COUNT 5.49 M/uL (4.7-6.1)
[2016-06-20 06:12] LABS: COMPLETE YES
[2016-06-20 06:36] LABS: BUN/CREATININE RATIO 14.7 (10-20); CALCIUM 8.8 mg/dl (8.5-10.1); CREATININE 0.87 mg/dl (0.60-1.40); MAGNESIUM 2.2 mg/dl (1.8-2.4); POTASSIUM 3.7 mmol/L (3.5-5.1)
[2016-06-20 07:11] VITALS: BP 104/71; PULSE 80; TEMP 36.5; O2SAT 96
[2016-06-20 07:39] VITALS: BP 113/75; PULSE 88; TEMP 36.6; O2SAT 96
[2016-06-20] MEDS: SODIUM BICARBONATE 650 MG TAB PO SCH ×3 (08:42→20:37)
[2016-06-20] MEDS: ALLOPURINOL 100 MG TAB PO SCH (08:43)
[2016-06-20] MEDS: POTASSIUM CITRATE 10 MEQ TAB PO SCH ×3 (08:43→18:04)
[2016-06-20 09:28] LABS: URINE APPEARANCE CLEAR (CLEAR); URINE BILIRUBIN NEG (NEG); URINE COLOR YELLOW; URINE NITRITE NEG (NEG); URINE SPECIFIC GRAVITY 1.014 (1.000-1.030); UROBILINOGEN NEG (NEG)
[2016-06-20 09:30] LABS: MANUAL MICROSCOPIC REQUIRED? NO; REVIEW REQ? NO
--- NOTE | 2016-06-20 14:10 | DIAGNOSTIC IMAGING REPORT ---
RIGHT AXILLARY ULTRASOUND CLINICAL HISTORY: Right axillary adenopathy. COMPARISON STUDY: Chest CT November 17, 2016. FINDINGS: A few prominent right axillary lymph nodes were noted. The largest node measures 2.3 x 1.4 x 1.3 cm. This node contains a fatty hilum. The cortex is not significantly thickened. IMPRESSION: A few borderline enlarged right axillary lymph nodes. Electronically signed by: Hemal Mcclain M.D. 06/20/2016 2:08 PM Dictated Date/Time: 06/20/2016 2:04 PM
[2016-06-20] MEDS: CEFTRIAXONE SOD INJ 1 GM in DEXTROSE 5% ADD-VANTAGE 50ML 50 ML IV SCH (14:18)
--- NOTE | 2016-06-20 14:19 | DIAGNOSTIC IMAGING REPORT ---
LEFT AXILLARY ULTRASOUND CLINICAL HISTORY: Diffuse adenopathy. COMPARISON STUDY: Chest CT June 19, 2016. FINDINGS: There are several mildly enlarged left axillary lymph nodes that measure up to 3.5 x 0.9 x 1.5 cm. These nodes contain a fatty hilum. The cortex is slightly thickened. IMPRESSION: Several mildly enlarged left axillary lymph nodes. Electronically signed by: Hemla Mcclain M.D. 06/20/2016 2:17 PM Dictated Date/Time: 06/20/2016 2:14 PM
--- NOTE | 2016-06-20 14:30 | Medical Consult ---
Consultation Date of Consultation: Jun 20, 2016. Attending Physician: Faustino Dillon MD Reason for Consultation: Bulky adenopathy of the abdomen, pelvis highly suspicious for lymphoproliferative disorder History of Present Illness Mr. Murray is new to the consulting oncology service; he is a 35 year old male with who presented to the ER on 06/19/16 with chief complaint of intermittent stabbing pains of his right back in the setting of passing a kidney stone the week prior. Prior to passing the kidney stone last week, patient came to the ED on 06/08/16 as he was having dysuria and urinary retention for which he was placed on Bactrim for presumed UTI. While on the Bactrim, he passed the first kidney stone last week. Upon admission to the ER, the patient had a CT of his abdomen/pelvis for his symptoms which did reveal an obstructing left distal ureteral stone with left sided hydroureteronephrosis, stone measures about 10 mm. Incidentally noted was diffuse bulky adenopathy of the abdomen and pelvis, worrisome for lymphoproliferative disorder. The patient subsequently had a CT of the chest which revealed mild lymphadenopathy of the mediastinum and axillae. Dr. Logan in conjunction with Dr. Lemus has recommended alkalinizing urine to see if stone could decrease and pass without surgical intervention. Additional history obtained from patient and his at bedside. The patient reports that his pain is adequately controlled at this time. He is not having dysuria or noting hematuria. He states he has not had fever, sweats or weight loss. He has not noted any superficial adenopathy in preceding few months. He has not had recurrent infections ; though, he does report a significant skin infection of a tattoo on his left arm after it was placed in February 2016. He was given Bactrim at that time and the infection resolved; he however noted numbness/tingling in his distal lower extremities and right arm in the evenings while he was on Bactrim, but no rash or anaphylaxis. He was also placed on Bactrim about a week ago and experience similar paresthesias. He does not have paresthesia now. He reports a good appetite and has not had bowel irregularity or blood in the bowel. He has not noted cough or dyspnea. He denies dizziness or headaches. 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 He denies any family history of cancer or blood disorders. Past Medical/Surgical History Medical Problems: (1) Intra-abdominal lymphadenopathy Status: Acute (2) Renal colic Status: Acute Social History Smoking Status: Never Smoker Drug Use: none Marital Status: Housing Status: lives with family Occupation Status: employed (laid off right now) Allergies Coded Allergies: No Known Allergies (Unverified , 06/19/16) Current Inpatient Medications Current Inpatient Medications Medications (Trade) Dose Ordered Sig/Billy Route Start Time Stop Time Status Last Admin Dose Admin Acetaminophen (Tylenol Tab) 650 mg Q4H PRN PO 06/19/16 11:45 07/19/16 11:44 Al Hydrox/Mg Hydrox/Simethicone (Maalox Max Susp) 15 ml Q4H PRN PO 06/19/16 11:45 07/19/16 11:44 Magnesium Hydroxide (Milk Of Magnesia Susp) 30 ml Q6H PRN PO 06/19/16 11:45 07/19/16 11:44 Zolpidem Tartrate (Ambien Tab) 5 mg HSZ PRN PO 06/19/16 11:45 07/19/16 11:44 Ondansetron HCl 4 mg 4 mg Q6H PRN IV 06/19/16 11:45 07/19/16 11:44 Sodium Chloride (Nss 1000ml) 1,000 ml @ 80 mls/hr [id number] IV 06/19/16 11:45 07/19/16 11:44 06/20/16 02:01 80 MLS/HR Morphine Sulfate 2 mg 2 mg Q4H PRN IV 06/19/16 11:45 07/03/16 11:44 Ceftriaxone Sodium/Dextrose (Rocephin Inj/ Dextrose Add-[place] 50ML) 50 ml @ 100 mls/hr Q24H IV 06/19/16 14:00 06/29/16 11:44 06/19/16 13:49 100 MLS/HR Tamsulosin HCl (Flomax Cap) 0.4 mg HS PO 06/19/16 21:00 07/19/16 20:59 06/19/16 21:23 0.4 MG Sodium Bicarbonate (Sodium Bicarbonate Tab) 1,300 mg TID PO 06/19/16 21:00 07/19/16 20:59 1/16/17 21:24 1,300 MG Potassium Citrate (Urocit-K Tab) 10 meq TIDM PO 06/20/16 08:30 07/20/16 08:29 Allopurinol (Zyloprim Tab) 100 mg DAILY PO 06/19/16 20:30 07/19/16 20:29 06/19/16 21:23 100 MG Review of Systems Constitutional: No chills, No fatigue, No fever, No sweats, No weight loss Eyes: No diplopia, No worsening of vision Respiratory: No cough, No shortness of breath, No sputum Cardiovascular: No edema, No palpitations Abdomen: No GI bleeding, No constipation, No diarrhea, No nausea, No pain, No vomiting Genitourinary - Male: + problem reported (see HPI- admitted for kidney stone) Neurologic: + numbness/tingling (see HPI), No vertigo Hematologic / Lymphatic: No abnormal bleeding/bruising, No clotting problems Integumentary: No rash Physical Exam Date Time Temp Pulse Resp B/P Pulse Ox O2 Delivery O2 Flow Rate FiO2 06/20/16 07:58 Room Air 06/20/16 07:39 36.6 88 20 113/75 96 Room Air 06/20/16 07:30 Room Air 06/20/16 07:11 36.5 80 18 104/71 96 Room Air 06/19/16 23:55 Room Air 06/19/16 23:50 36.7 76 16 127/81 99 Room Air 06/19/16 22:18 Room Air 06/19/16 12:47 Room Air 06/19/16 12:37 36.7 73 16 143/88 Room Air 06/19/16 12:30 36.7 73 16 143/88 99 Room Air 06/19/16 11:19 63 20 113/64 96 Room Air 06/19/16 09:18 37.0 72 18 130/86 98 Room Air General Appearance: WD/WN, no apparent distress Head: normocephalic, atraumatic ENT: hearing grossly normal Neck: supple Respiratory/Chest: lungs clear, normal breath sounds, no respiratory distress, no accessory muscle use Cardiovascular: regular rate, rhythm, no edema, no murmur Abdomen/GI: normal bowel sounds, non tender, soft, no organomegaly Extremities/Musculoskelatal: no calf tenderness, no pedal edema Neurologic/Psych: alert, oriented x 3 Skin: normal color, warm/dry, no rash Lymphatic: no adenopathy (of cervical, supraclavicular or axillary regions palpable) Laboratory Results 06/19/16 10:15 Red Blood Count 5.88, Mean Corpuscular Volume 72.8, Mean Corpuscular Hemoglobin 25.5, Mean Corpuscular Hemoglobin Concent 35.0, Mean Platelet Volume 10.4, Neutrophils (%) (Auto) 43.3, Lymphocytes (%) (Auto) 32.4, Monocytes (%) (Auto) 13.0, Eosinophils (%) (Auto) 10.5, Basophils (%) (Auto) 0.2, Neutrophils # (Auto ) 2.84, Lymphocytes # (Auto) 2.12, Monocytes # (Auto) 0.85, Eosinophils # (Auto ) 0.69, Basophils # (Auto) 0.01 06/20/16 05:10 Red Blood Count 5.49, Mean Corpuscular Volume 74.3, Mean Corpuscular Hemoglobin 25.7, Mean Corpuscular Hemoglobin Concent 34.6, Mean Platelet Volume 10.5, Neutrophils (%) (Auto) 47.9, Lymphocytes (%) (Auto) 28.6, Monocytes (%) (Auto) 13.1, Eosinophils (%) (Auto) 9.7, Basophils (%) (Auto) 0.2, Neutrophils # (Auto ) 3.12, Lymphocytes # (Auto) 1.86, Monocytes # (Auto) 0.85, Eosinophils # (Auto ) 0.63, Basophils # (Auto) 0.01 06/19/16 10:15 06/20/16 05:10 Test 06/19/16 10:00 06/19/16 10:15 06/20/16 05:10 Urine Color YELLOW Urine Appearance CLEAR (CLEAR) Urine pH 5.0 (4.5-7.5) Urine Specific [place] 1.021 (1.000-1.030) Urine Protein NEG (NEG) Urine Glucose (UA) NEG (NEG) Urine Ketones TRACE (NEG) Urine Occult Blood NEG (NEG) Urine Nitrite NEG (NEG) Urine Bilirubin NEG (NEG) Urine Urobilinogen NEG (NEG) Urine Leukocyte Esterase TRACE (NEG) Urine WBC (Auto) 1-5 /hpf (0-5) Urine RBC (Auto) 0-4 /hpf (0-4) Urine Hyaline Casts (Auto) 5-10 /lpf (0-5) Urine Epithelial Cells (Auto) 10-20 /lpf (0-5) Urine Bacteria (Auto) NEG (NEG) White Blood Count 6.55 K/uL (4.8-10.8) 6.50 K/uL (4.8-10.8) Red Blood Count 5.88 M/uL (4.7-6.1) 5.49 M/uL (4.7-6.1) Hemoglobin 15.0 g/dL (14.0-18.0) 14.1 g/dL (14.0-18.0) Hematocrit 42.8 % (42-52) 40.8 % (42-52) Mean Corpuscular Volume 72.8 fL (80-100) 74.3 fL (80-100) Mean Corpuscular Hemoglobin 25.5 pg (25-34) 25.7 pg (25-34) Mean Corpuscular Hemoglobin Concent 35.0 g/dl (32-36) 34.6 g/dl (32-36) Platelet Count 231 K/uL (130-400) 233 K/uL (130-400) Mean Platelet Volume 10.4 fL (7.4-10.4) 10.5 fL (7.4-10.4) Neutrophils (%) (Auto) 43.3 % 47.9 % Lymphocytes (%) (Auto) 32.4 % 28.6 % Monocytes (%) (Auto) 13.0 % 13.1 % Eosinophils (%) (Auto) 10.5 % 9.7 % Basophils (%) (Auto) 0.2 % 0.2 % Neutrophils # (Auto) 2.84 K/uL (1.4-6.5) 3.12 K/uL (1.4-6.5) Lymphocytes # (Auto) 2.12 K/uL (1.2-3.4) 1.86 K/uL (1.2-3.4) Monocytes # (Auto) 0.85 K/uL (0.11-0.59) 0.85 K/uL (0.11-0.59) Eosinophils # (Auto) 0.69 K/uL (0-0.5) 0.63 K/uL (0-0.5) Basophils # (Auto) 0.01 K/uL (0-0.2) 0.01 K/uL (0-0.2) RDW Standard Deviation 37.0 fL (36.4-46.3) 38.3 fL (36.4-46.3) RDW Coefficient of Variation 14.0 % (11.5-14.5) 14.3 % (11.5-14.5) Immature Granulocyte % (Auto) 0.6 % 0.5 % Immature Granulocyte # (Auto) 0.04 K/uL (0.00-0.02) 0.03 K/uL (0.00-0.02) Red Blood Cell Morphology Unremarkable Unremarkable Erythrocyte Sedimentation Rate 18 mm/hr (0-14) Anion Gap 10.0 mmol/L (3-11) 7.0 mmol/L (3-11) Est Creatinine Clear Calc Drug Dose 131.7 ml/min 151.4 ml/min Estimated GFR () 113.3 130.5 Estimated GFR (Non- 97.8 112.6 BUN/Creatinine Ratio 14.8 (10-20) 14.7 (10-20) Uric Acid 7.4 mg/dl (2.6-7.2) Calcium Level 9.4 mg/dl (8.5-10.1) 8.8 mg/dl (8.5-10.1) Magnesium Level 2.1 mg/dl (1.8-2.4) 2.2 mg/dl (1.8-2.4) Total Bilirubin 0.4 mg/dl (0.2-1) Aspartate Amino Transf (AST/SGOT) 43 U/L (15-37) Alanine Aminotransferase (ALT/SGPT) 52 U/L (12-78) Alkaline Phosphatase 91 U/L (45-117) Troponin I 0.018 ng/ml (0-0.045) Total Protein 8.6 gm/dl (6.4-8.2) Albumin 4.1 gm/dl (3.4-5.0) Globulin 4.5 gm/dl (2.5-4.0) Albumin/Globulin Ratio 0.9 (0.9-2) Lipase 235 U/L (73-393) Thyroid Stimulating Hormone (TSH) 4.780 uIu/ml (0.300-4.500) Free Thyroxine 1.04 ng/dl (0.80-1.60) Lyme Disease IgG Antibody NEG (NEG) Lyme Disease IgM Antibody NEG (NEG) CT of the abdomen/pelvis from 06/19/2016: 4 millimeter pleural-based nodule in the right lower lobe in 3 millimeter pleural based nodule in the right middle lobe. Doubtful significance in this age group. Small hiatal hernia. Liver is enlarged, measuring 22 centimeter in length. Hepatic steatosis. Spleen is enlarged, measuring 14.6 centimeter in length. 10 millimeter obstructing calculus in the distal left ureter located approximately 2.5 centimeter above the vesicoureteral junction. Causing mild left hydroureteronephrosis. There are at least 2 additional nonobstructing left renal calculi. 3 millimeter nonobstructing calculus in the right upper pole. Bulky upper abdominal, retroperitoneal and iliac chain lymphadenopathy. Gastrohepatic node measuring 1.5 x 2.8 centimeter. Lymph node in the davy hepaticus measures 2.8 x 2.5 centimeter. Left periaortic node measuring 3.2 x 1.6 centimeter. Right iliac chain node measuring 3.3 x 2.2 centimeter. Right external iliac chain node measuring 3.2 x 1.7 centimeter. Numerous mildly enlarged mesenteric nodes. A community engagement representative node measuring 1.5 x 1.2 centimeter. Mildly enlarged pelvic sidewall nodes. Left pelvic sidewall node measuring 1.5 x 1.1 centimeter. No pathologically enlarged inguinal nodes. No lytic or blastic lesions seen. CT of the chest from 06/19/2016: Mediastinal lymphadenopathy noted. Dominant prevascular lymph node measuring 1.7 x 1.1 centimeter. Prominent axillary lymph nodes are greater than expected for patient 's age which is also consistent with mild lymphadenopathy. Dominant pathologic appearing right axillary lymph node measuring 1.6 x 1.1 centimeter. Some of these lymph nodes demonstrated a normal fatty hilum, borderline enlarged. Abdominal lymphadenopathy is again noted. Few mildly enlarged anterior diaphragmatic lymph nodes. Dominant lymph node measures 12 millimeter. No pleural effusions. No suspicious lytic or blastic osseous lesions. Lungs are clear. Chest x-ray from 06/19/2016: No acute cardiopulmonary findings. Head CT from 06/19/2016: No acute intracranial findings. Assessment & Plan (1) Generalized lymphadenopathy Assessment & Plan: Hematology/Oncology has been consulted for diffuse generalized adenopathy of chest/abdomen/pelvis found incidentally while patient has been admitted for left ureteral stone. The appearance by CT scan is concerning for a lymphoproliferative disorder. The patient was counseled today that further workup needs to ensue to confirm lymphoma suspicion. He has no B symptoms. Discussed generally about HL vs NHL, but stated we would need pathologic confirmation to be able to give patient details about treatment, etc. He has at least Stage III disease if lymphoma confirmed by path, but if liver and/or bone marrow involvement confirmed, Stage IV. I have added a lab for LDH as this can be elevated in lymphoma, but we discussed this is nonspecific and could be elevated for numerous different reasons. Recommended to proceed with bilateral axillary ultrasound to see if any of the adenopathy is superficial enough to be obtained via excisional biopsy for pathologic examination; if so, will consult general surgery. If this adenopathy will not be accessible, discussed with Dr. Marion, and we will have to consult thoracic surgery for mediastinal evaluation. We also discussed about complete staging including PET scan and bone marrow biopsy, but this will be obtained in outpatient setting. The patient was understandably upset and seemed overwhelmed. He was agreeable to proceeding with axillary work up at this time. He inquired if there is any possibility if this adenopathy is benign, and I stated it is possible but less probable that it is. Dr. Marion will be over to evaluate patient this afternoon and talk with patient and his as well. (2) Renal calculus, left Status: Acute Assessment & Plan: Per urology and nephrology management. Believed to be uric acid stone. Alkalinizing urine currently in hopes that stone will pass without procedure. Agree with having patient on allopurinol from a lymphoma point of view as well, if pathology confirms this. (3) Microcytosis Patient is not anemic, though has significant microcytosis. He denies personal or family history of blood disorders. He has no major active bleeding. Recommended to check iron studies, ferritin to further evaluate, these orders have been placed. Thanks for the consult on this patient. I performed history and physical examination of the patient. I have discussed the patient's case, impression and plan with Jami Robertson PA-C. Her note reflects my findings and plan. he is a 35-year-old male, who presented to the hospital for symptomatic left lower ureteric stone, found to have elevated uric acid, imaging studies also showed lymphadenopathy involving retroperitoneum as well as mediastinum as well as bilateral axillary region, also has hepatomegaly splenomegaly, normal LDH level, no B symptoms, lymphoma is suspected but need tissue diagnosis, seen by surgeon, planning for left axilla lymph tyrone biopsy. Will decide about further workup and treatment option after having definitive diagnosis. Thanks for the consultation. Kb Marion MD Hematology/Oncology
[2016-06-20 15:03] VITALS: BP 151/82; PULSE 92; TEMP 36.9; O2SAT 97
[2016-06-20 15:29] LABS: FERRITIN 98.7 ng/ml (8.0-388.0)
[2016-06-20 15:35] VITALS: O2SAT 97
--- NOTE | 2016-06-20 16:47 | Nephrology Progress Note ---
Nephrology Progress Note Date of Service: Jun 20, 2016. Subjective 35 yo male with uric acid stone currently being alkalinized with findings on ct scan suggestive of lymphoma. undergoing axillary us to see if any lymph nodes accessible for general surgery. pt comfortable. no b symptoms. urinating well. has radiating pain on right flank. pt did say he had a tattoo infection requiring antibiotics several months ago. pt is depressed. Objective Date Time Temp Pulse Resp B/P Pulse Ox O2 Delivery O2 Flow Rate FiO2 06/20/16 15:35 97 Room Air 06/20/16 15:03 36.9 92 18 151/82 97 Room Air 06/20/16 07:58 Room Air 06/20/16 07:39 36.6 88 20 113/75 96 Room Air 06/20/16 07:30 Room Air 06/20/16 07:11 36.5 80 18 104/71 96 Room Air 06/19/16 23:55 Room Air 06/19/16 23:50 36.7 76 16 127/81 99 Room Air 06/19/16 22:18 Room Air Physical Exam: General-aaox3 Eyes-no scleral icterus ENT-mmm Neck-supple Lungs-cta Heart-rrr Abdomen-bs+ s/nt/nd Extremities-no edema Neuro-nonfocal Current Inpatient Medications Medications (Trade) Dose Ordered Sig/Billy Route Start Time Stop Time Status Last Admin Dose Admin Acetaminophen (Tylenol Tab) 650 mg Q4H PRN PO 06/19/16 11:45 07/19/16 11:44 Al Hydrox/Mg Hydrox/Simethicone (Maalox Max Susp) 15 ml Q4H PRN PO 06/19/16 11:45 07/19/16 11:44 Magnesium Hydroxide (Milk Of Magnesia Susp) 30 ml Q6H PRN PO 06/19/16 11:45 07/19/16 11:44 Zolpidem Tartrate (Ambien Tab) 5 mg HSZ PRN PO 06/19/16 11:45 07/19/16 11:44 Ondansetron HCl 4 mg 4 mg Q6H PRN IV 06/19/16 11:45 07/19/16 11:44 Sodium Chloride (Nss 1000ml) 1,000 ml @ 80 mls/hr [id number] IV 06/19/16 11:45 07/19/16 11:44 06/20/16 12:10 80 MLS/HR Morphine Sulfate 2 mg 2 mg Q4H PRN IV 06/19/16 11:45 07/03/16 11:44 Ceftriaxone Sodium/Dextrose (Rocephin Inj/ Dextrose Add-[place] 50ML) 50 ml @ 100 mls/hr Q24H IV 06/19/16 14:00 06/29/16 11:44 06/20/16 14:18 100 MLS/HR Tamsulosin HCl (Flomax Cap) 0.4 mg HS PO 06/19/16 21:00 07/19/16 20:59 06/19/16 21:23 0.4 MG Sodium Bicarbonate (Sodium Bicarbonate Tab) 1,300 mg TID PO 06/19/16 21:00 07/19/16 20:59 06/20/16 14:19 1,300 MG Potassium Citrate (Urocit-K Tab) 10 meq TIDM PO 06/20/16 08:30 07/20/16 08:29 06/20/16 12:08 10 MEQ Allopurinol (Zyloprim Tab) 100 mg DAILY PO 06/19/16 20:30 07/19/16 20:29 06/20/16 08:43 100 MG Last 24 Hours Test 06/20/16 05:10 06/20/16 09:16 06/20/16 14:47 White Blood Count 6.50 K/uL Red Blood Count 5.49 M/uL Hemoglobin 14.1 g/dL Hematocrit 40.8 % Mean Corpuscular Volume 74.3 fL Mean Corpuscular Hemoglobin 25.7 pg Mean Corpuscular Hemoglobin Concent 34.6 g/dl Platelet Count 233 K/uL Mean Platelet Volume 10.5 fL Neutrophils (%) (Auto) 47.9 % Lymphocytes (%) (Auto) 28.6 % Monocytes (%) (Auto) 13.1 % Eosinophils (%) (Auto) 9.7 % Basophils (%) (Auto) 0.2 % Neutrophils # (Auto) 3.12 K/uL Lymphocytes # (Auto) 1.86 K/uL Monocytes # (Auto) 0.85 K/uL Eosinophils # (Auto) 0.63 K/uL Basophils # (Auto) 0.01 K/uL RDW Standard Deviation 38.3 fL RDW Coefficient of Variation 14.3 % Immature Granulocyte % (Auto) 0.5 % Immature Granulocyte # (Auto) 0.03 K/uL Red Blood Cell Morphology Unremarkable Sodium Level 140 mmol/L Potassium Level 3.7 mmol/L Chloride Level 106 mmol/L Carbon Dioxide Level 27 mmol/L Anion Gap 7.0 mmol/L Blood Urea Nitrogen 13 mg/dl Creatinine 0.87 mg/dl Est Creatinine Clear Calc Drug Dose 151.4 ml/min Estimated GFR () 130.5 Estimated GFR (Non- 112.6 BUN/Creatinine Ratio 14.7 Random Glucose 87 mg/dl Calcium Level 8.8 mg/dl Magnesium Level 2.2 mg/dl Urine Color YELLOW Urine Appearance CLEAR Urine pH 5.0 Urine Specific [place] 1.014 Urine Protein NEG Urine Glucose (UA) NEG Urine Ketones NEG Urine Occult Blood NEG Urine Nitrite NEG Urine Bilirubin NEG Urine Urobilinogen NEG Urine Leukocyte Esterase NEG Iron Level 59 mcg/dl Total Iron Binding Capacity 343 mcg/dl Transferrin 256 mg/dl Transferrin % Saturation 16 % Ferritin 98.7 ng/ml Lactate Dehydrogenase 152 U/L Assessment & Plan uric acid stones-alkalinizing urine and to check ph of urine tomorrow through ua. creatinine stable. k is stable. currently on allopurinol as well to help lower uric acid levels. concerning finding for lymphoma-will check hepatitis serologies to be thorough given history of tattoos. although more likely lymphoma.
--- NOTE | 2016-06-20 17:30 | Progress Note ---
Subjective Date of Service: Jun 20, 2016. Subjective Pt evaluation today including: conversation w/ patient, conversation w/ family , physical exam, chart review, lab review, conversation w/ quantitative consultant Voiding: no voiding problems feels fine had one episode of brief self limiting pain. Has no hematuria no stone passed. passing a lot of urine. No burning. Problem List Medical Problems: (1) Intra-abdominal lymphadenopathy Status: Acute (2) Renal colic Status: Acute Review of Systems Constitutional: No chills, No fatigue, No fever, No sweats, No weight loss Male : + nocturia more than once/night, + urinary frequency, No dysuria, No hematuria, No incontinence Heme: + swollen lymph nodes Endo: No fatigue Objective Vital Signs Date Time Temp Pulse Resp B/P Pulse Ox O2 Delivery O2 Flow Rate FiO2 06/20/16 15:35 97 Room Air 06/20/16 15:03 36.9 92 18 151/82 97 Room Air 06/20/16 07:58 Room Air 06/20/16 07:39 36.6 88 20 113/75 96 Room Air 06/20/16 07:30 Room Air 06/20/16 07:11 36.5 80 18 104/71 96 Room Air 06/19/16 23:55 Room Air 06/19/16 23:50 36.7 76 16 127/81 99 Room Air 06/19/16 22:18 Room Air Physical Exam General Appearance: WD/WN, no apparent distress, + obese ENT: hearing grossly normal Neurologic/Psychiatric: alert, normal mood/affect, oriented x 3 Laboratory Results Last 24 Hours Test 06/20/16 05:10 06/20/16 09:16 06/20/16 14:47 White Blood Count 6.50 K/uL Red Blood Count 5.49 M/uL Hemoglobin 14.1 g/dL Hematocrit 40.8 % Mean Corpuscular Volume 74.3 fL Mean Corpuscular Hemoglobin 25.7 pg Mean Corpuscular Hemoglobin Concent 34.6 g/dl Platelet Count 233 K/uL Mean Platelet Volume 10.5 fL Neutrophils (%) (Auto) 47.9 % Lymphocytes (%) (Auto) 28.6 % Monocytes (%) (Auto) 13.1 % Eosinophils (%) (Auto) 9.7 % Basophils (%) (Auto) 0.2 % Neutrophils # (Auto) 3.12 K/uL Lymphocytes # (Auto) 1.86 K/uL Monocytes # (Auto) 0.85 K/uL Eosinophils # (Auto) 0.63 K/uL Basophils # (Auto) 0.01 K/uL RDW Standard Deviation 38.3 fL RDW Coefficient of Variation 14.3 % Immature Granulocyte % (Auto) 0.5 % Immature Granulocyte # (Auto) 0.03 K/uL Red Blood Cell Morphology Unremarkable Sodium Level 140 mmol/L Potassium Level 3.7 mmol/L Chloride Level 106 mmol/L Carbon Dioxide Level 27 mmol/L Anion Gap 7.0 mmol/L Blood Urea Nitrogen 13 mg/dl Creatinine 0.87 mg/dl Est Creatinine Clear Calc Drug Dose 151.4 ml/min Estimated GFR () 130.5 Estimated GFR (Non- 112.6 BUN/Creatinine Ratio 14.7 Random Glucose 87 mg/dl Calcium Level 8.8 mg/dl Magnesium Level 2.2 mg/dl Urine Color YELLOW Urine Appearance CLEAR Urine pH 5.0 Urine Specific [place] 1.014 Urine Protein NEG Urine Glucose (UA) NEG Urine Ketones NEG Urine Occult Blood NEG Urine Nitrite NEG Urine Bilirubin NEG Urine Urobilinogen NEG Urine Leukocyte Esterase NEG Iron Level 59 mcg/dl Total Iron Binding Capacity 343 mcg/dl Transferrin 256 mg/dl Transferrin % Saturation 16 % Ferritin 98.7 ng/ml Lactate Dehydrogenase 152 U/L Assessment and Plan left distal ureteral stone no hydro no colic normal bun/cr I reviewed the digital ct images with patient and his . will continue with urinary alkalinization. Hope to melt the stone small enough to pass. I have called Dr Candelaria to assess patient for any lymph nodes which might be amenable to open biopsy perhaps in the left axilla based on ultrasound. Lymphoma is suspected but not nearly a certainty. need tissue for diagnosis.
--- NOTE | 2016-06-20 17:31 | Progress Note ---
Internal Med Progress Note Date of Service: Jun 20, 2016. Provider Documentation: SUBJECTIVE: patient is somewhat distress that he may have lymphma abdominal pain resolved afebrile no chest pain or sob OBJECTIVE: Vital Signs-as noted below Exam: General-alert and oriented ENT-normal hearing Neck-no neck masses Lungs-cta b/l no wheezing or crackles Heart-s1 and s2 heard regular rate and rhythm no murmurs Abdomen-soft bowel sounds present non tender no distension Extremities-no erythema Neuro-alert and awake moves extremities Lab data as noted below. ASSESSMENT & PLAN: Left Sided Obstructing Renal Stone: Admit to medical floor. on fluids and pain meds elevated uric acid started on allopurinol alkalization of urine appreciate urology and nephrology inputs Bulky Abdominopelvic Lymphadenopathy: Highly suspicious for Lymphoma. started on allopurinol heme/onco consulted and appreciate inputs plan for biopsy DVT PROPHYLAXIS scds DISPOSITION to be determined Vital Signs: Date Time Temp Pulse Resp B/P Pulse Ox O2 Delivery O2 Flow Rate FiO2 06/20/16 15:35 97 Room Air 06/20/16 15:03 36.9 92 18 151/82 97 Room Air 06/20/16 07:58 Room Air 06/20/16 07:39 36.6 88 20 113/75 96 Room Air 06/20/16 07:30 Room Air 06/20/16 07:11 36.5 80 18 104/71 96 Room Air 06/19/16 23:55 Room Air 06/19/16 23:50 36.7 76 16 127/81 99 Room Air 06/19/16 22:18 Room Air Lab Results: Results Past 24 Hours Test 06/20/16 05:10 06/20/16 09:16 06/20/16 14:47 Range/Units White Blood Count 6.50 4.8-10.8 K/uL Red Blood Count 5.49 4.7-6.1 M/uL Hemoglobin 14.1 14.0-18.0 g/dL Hematocrit 40.8 42-52 % Mean Corpuscular Volume 74.3 80-100 fL Mean Corpuscular Hemoglobin 25.7 25-34 pg Mean Corpuscular Hemoglobin Concent 34.6 32-36 g/dl Platelet Count 233 130-400 K/uL Mean Platelet Volume 10.5 7.4-10.4 fL Neutrophils (%) (Auto) 47.9 % Lymphocytes (%) (Auto) 28.6 % Monocytes (%) (Auto) 13.1 % Eosinophils (%) (Auto) 9.7 % Basophils (%) (Auto) 0.2 % Neutrophils # (Auto) 3.12 1.4-6.5 K/uL Lymphocytes # (Auto) 1.86 1.2-3.4 K/uL Monocytes # (Auto) 0.85 0.11-0.59 K/uL Eosinophils # (Auto) 0.63 0-0.5 K/uL Basophils # (Auto) 0.01 0-0.2 K/uL RDW Standard Deviation 38.3 36.4-46.3 fL RDW Coefficient of Variation 14.3 11.5-14.5 % Immature Granulocyte % (Auto) 0.5 % Immature Granulocyte # (Auto) 0.03 0.00-0.02 K/uL Red Blood Cell Morphology Unremarkable Sodium Level 140 136-145 mmol/L Potassium Level 3.7 3.5-5.1 mmol/L Chloride Level 106 98-107 mmol/L Carbon Dioxide Level 27 21-32 mmol/L Anion Gap 7.0 3-11 mmol/L Blood Urea Nitrogen 13 7-18 mg/dl Creatinine 0.87 0.60-1.40 mg/dl Est Creatinine Clear Calc Drug Dose 151.4 ml/min Estimated GFR () 130.5 Estimated GFR (Non- 112.6 BUN/Creatinine Ratio 14.7 10-20 Random Glucose 87 70-99 mg/dl Calcium Level 8.8 8.5-10.1 mg/dl Magnesium Level 2.2 1.8-2.4 mg/dl Urine Color YELLOW Urine Appearance CLEAR CLEAR Urine pH 5.0 4.5-7.5 Urine Specific [place] 1.014 1.000-1.030 Urine Protein NEG NEG Urine Glucose (UA) NEG NEG Urine Ketones NEG NEG Urine Occult Blood NEG NEG Urine Nitrite NEG NEG Urine Bilirubin NEG NEG Urine Urobilinogen NEG NEG Urine Leukocyte Esterase NEG NEG Iron Level 59 35-175 mcg/dl Total Iron Binding Capacity 343 250-450 mcg/dl Transferrin 256 200-360 mg/dl Transferrin % Saturation 16 20-50 % Ferritin 98.7 8.0-388.0 ng/ml Lactate Dehydrogenase 152 87-241 U/L
[2016-06-20] MEDS: TAMSULOSIN HCL 0.4 MG CAP PO SCH (20:37)
[2016-06-20 23:10] VITALS: BP 150/82; PULSE 85; TEMP 36.8; O2SAT 96
[2016-06-21] MEDS: SODIUM CHLORIDE 0.9% 1000ML 1,000 ML IV SCH ×2 (00:01→12:35)
--- NOTE | 2016-06-21 00:16 | SURGICAL CONSULTATION ---
DATE OF CONSULTATION: 06/20/2016 I have been asked by Dr. Logan to see this 35-year-old male who presented to the Emergency Room with complaint of pain in the right flank/lower back area. He over the last 2-3 weeks had been dealing with urologic issues. He passed a kidney stone last week. He was at one point felt to have a UTI and treated with antibiotics, that was treated with Bactrim. He presented this time with unrelenting pain in the right lower back. A workup was performed and he has an obstructing kidney stone but that is in the left ureter. He underwent a CT scan of the abdomen and pelvis. This demonstrated bulky upper abdominal, retroperitoneal and iliac chain lymphadenopathy. There was a gastrohepatic node noted as well. There was a node in the davy hepatis. There were numerous mildly enlarged mesenteric lymph nodes as well. There was mildly enlarged pelvic sidewall, no enlargement. He then had a CT scan of the chest that demonstrated mild lymphadenopathy in the chest in the mediastinal area. There were also prominent axillary lymph nodes. They did have a fatty barney though. He underwent an ultrasound of the left axilla that showed several mildly enlarged lymph nodes that measured up to 3.5 x 0.9 x 1.5 cm. He also had an ultrasound of the right axilla that also showed lymphadenopathy. He has not had any night sweats, although he has had some chills. He has had no weight loss. His appetite is good. PAST MEDICAL HISTORY: Negative. MEDICATIONS AT HOME: None. ALLERGIES: None. PHYSICAL EXAMINATION: GENERAL: Reveals a well-developed, well-nourished male who appears in no acute distress. VITAL SIGNS: Blood pressure 151/82, heart rate 92, respirations 18, temperature 36.9, pulse oximetry 97% on room air. HEENT: Reveals sclerae to be anicteric. Mucous membranes are moist. NECK: Supple with no adenopathy, no JVD. LUNGS: Clear. HEART: Regular. CHEST: Examination of the chest wall and axilla reveals palpable lymphadenopathy on both sides with the left side being more prominent than the right. ABDOMEN: Normoactive bowel sounds. It is soft, nondistended, nontender. There is no inguinal adenopathy. EXTREMITIES: Reveal no edema. LABORATORY DATA: His WBC is 6.5, H\T\H is 14.1 and 40.8 with a platelet count of 233,000. Sodium 140, potassium 3.7, chloride 106, CO2 27, BUN 13, creatinine 0.87, glucose 87. RADIOLOGY: As per HPI. ASSESSMENT AND PLAN: This patient has lymphadenopathy which is suspicious. I think we can do an excisional biopsy of the left inguinal lymph node. We will decide on timing. I explained that to the patient and his , they are agreeable.
[2016-06-21 07:30] VITALS: BP 119/69; PULSE 76; TEMP 36.6; O2SAT 96
--- NOTE | 2016-06-21 07:49 | Surgery Progress Note ---
Surgery Progress Note Date of Service Jun 21, 2016. Subjective No complaints Objective Vital Signs: Date Time Temp Pulse Resp B/P Pulse Ox O2 Delivery O2 Flow Rate FiO2 06/21/16 07:30 36.6 76 18 119/69 96 Room Air 06/20/16 23:55 Room Air 06/20/16 23:10 36.8 85 18 150/82 96 Room Air 06/20/16 15:35 97 Room Air 06/20/16 15:03 36.9 92 18 151/82 97 Room Air 06/20/16 07:58 Room Air Laboratory Results: Results Past 24 Hours Test 06/20/16 09:16 06/20/16 14:47 06/21/16 06:05 Range/Units Urine Color YELLOW Urine Appearance CLEAR CLEAR Urine pH 5.0 4.5-7.5 Urine Specific [place] 1.014 1.000-1.030 Urine Protein NEG NEG Urine Glucose (UA) NEG NEG Urine Ketones NEG NEG Urine Occult Blood NEG NEG Urine Nitrite NEG NEG Urine Bilirubin NEG NEG Urine Urobilinogen NEG NEG Urine Leukocyte Esterase NEG NEG Iron Level 59 35-175 mcg/dl Total Iron Binding Capacity 343 250-450 mcg/dl Transferrin 256 200-360 mg/dl Transferrin % Saturation 16 20-50 % Ferritin 98.7 8.0-388.0 ng/ml Lactate Dehydrogenase 152 87-241 U/L Assessment & Plan For left axillary lymph node biopsy for tomorrow. I explained the procedure and the possible, answered his questions and he has signed a consent form.
--- NOTE | 2016-06-21 08:35 | Nephrology Progress Note ---
Nephrology Progress Note Date of Service: Jun 21, 2016. Subjective 35 yo male with uric acid stone currently being alkalinized with findings on ct scan suggestive of lymphoma. for OR tomorrow for lymph node biopsy to help with diagnosis. likely will do further staging as an outpt. pt comfortable. urinating well. no pain. on iv fluids, k citrate and sodium bicarb. also on allopurinol. Objective Date Time Temp Pulse Resp B/P Pulse Ox O2 Delivery O2 Flow Rate FiO2 06/21/16 07:30 36.6 76 18 119/69 96 Room Air 06/20/16 23:55 Room Air 06/20/16 23:10 36.8 85 18 150/82 96 Room Air 06/20/16 15:35 97 Room Air 06/20/16 15:03 36.9 92 18 151/82 97 Room Air Physical Exam: General-aaox3 Eyes-no scleral icterus ENT-mmm Neck-supple Lungs-clear Heart-regular Abdomen-bs+ s/nt/nd Extremities-no edema Neuro-nonfocal Current Inpatient Medications Medications (Trade) Dose Ordered Sig/Billy Route Start Time Stop Time Status Last Admin Dose Admin Acetaminophen (Tylenol Tab) 650 mg Q4H PRN PO 06/19/16 11:45 07/19/16 11:44 Al Hydrox/Mg Hydrox/Simethicone (Maalox Max Susp) 15 ml Q4H PRN PO 06/19/16 11:45 07/19/16 11:44 Magnesium Hydroxide (Milk Of Magnesia Susp) 30 ml Q6H PRN PO 06/19/16 11:45 07/19/16 11:44 Zolpidem Tartrate (Ambien Tab) 5 mg HSZ PRN PO 06/19/16 11:45 07/19/16 11:44 Ondansetron HCl 4 mg 4 mg Q6H PRN IV 06/19/16 11:45 07/19/16 11:44 Sodium Chloride (Nss 1000ml) 1,000 ml @ 80 mls/hr [id number] IV 06/19/16 11:45 07/19/16 11:44 06/21/16 00:01 80 MLS/HR Morphine Sulfate 2 mg 2 mg Q4H PRN IV 06/19/16 11:45 07/03/16 11:44 Ceftriaxone Sodium/Dextrose (Rocephin Inj/ Dextrose Add-[place] 50ML) 50 ml @ 100 mls/hr Q24H IV 06/19/16 14:00 06/29/16 11:44 06/20/16 14:18 100 MLS/HR Tamsulosin HCl (Flomax Cap) 0.4 mg HS PO 06/19/16 21:00 07/19/16 20:59 06/20/16 20:37 0.4 MG Sodium Bicarbonate (Sodium Bicarbonate Tab) 1,300 mg TID PO 06/19/16 21:00 07/19/16 20:59 06/20/16 20:37 1,300 MG Potassium Citrate (Urocit-K Tab) 10 meq TIDM PO 06/20/16 08:30 07/20/16 08:29 06/20/16 18:04 10 MEQ Allopurinol (Zyloprim Tab) 100 mg DAILY PO 06/19/16 20:30 07/19/16 20:29 06/20/16 08:43 100 MG Last 24 Hours Test 06/20/16 09:16 06/20/16 14:47 06/21/16 06:05 Urine Color YELLOW Urine Appearance CLEAR Urine pH 5.0 Urine Specific [place] 1.014 Urine Protein NEG Urine Glucose (UA) NEG Urine Ketones NEG Urine Occult Blood NEG Urine Nitrite NEG Urine Bilirubin NEG Urine Urobilinogen NEG Urine Leukocyte Esterase NEG Iron Level 59 mcg/dl Total Iron Binding Capacity 343 mcg/dl Transferrin 256 mg/dl Transferrin % Saturation 16 % Ferritin 98.7 ng/ml Lactate Dehydrogenase 152 U/L Assessment & Plan uric acid stones-alkalinizing urine and to check ph of urine today. last ph was still low at 5, however just recently started alkalination process. no changes to the sodium bicarb or k citrate. also trying to lower the uric acid and started on 100mg of allopurinol. would recheck levels in about 6 weeks to see if any improvement.
[2016-06-21] MEDS: POTASSIUM CITRATE 10 MEQ TAB PO SCH ×3 (08:42→17:46)
[2016-06-21] MEDS: ALLOPURINOL 100 MG TAB PO SCH (08:42)
[2016-06-21] MEDS: SODIUM BICARBONATE 650 MG TAB PO SCH ×3 (08:43→20:35)
[2016-06-21 12:22] LABS: MANUAL MICROSCOPIC REQUIRED? NO; REVIEW REQ? NO; URINE APPEARANCE CLEAR (CLEAR); URINE BILIRUBIN NEG (NEG); URINE COLOR YELLOW; URINE NITRITE NEG (NEG); URINE SPECIFIC GRAVITY 1.006 (1.000-1.030); UROBILINOGEN NEG (NEG)
[2016-06-21] MEDS ORDERED: LORAZEPAM 1 MG TAB PO PRN (13:30)
[2016-06-21] MEDS: CEFTRIAXONE SOD INJ 1 GM in DEXTROSE 5% ADD-VANTAGE 50ML 50 ML IV SCH (14:09)
[2016-06-21 14:55] VITALS: BP 119/70; PULSE 80; TEMP 36.7; O2SAT 96
--- NOTE | 2016-06-21 17:31 | Progress Note ---
Internal Med Progress Note Date of Service: Jun 21, 2016. Provider Documentation: SUBJECTIVE: patient is eating lunch denies any pain anxious about the findings afebrile OBJECTIVE: Vital Signs-as noted below Exam: General-alert and oriented ENT-normal hearing Neck-no neck masses Lungs-cta b/l no wheezing or crackles Heart-s1 and s2 heard regular rate and rhythm no murmurs Abdomen-soft bowel sounds present non tender no distension Extremities-no erythema Neuro-alert and awake moves extremities Lab data as noted below. ASSESSMENT & PLAN: Left Sided Obstructing Renal Stone: Admit to medical floor. on fluids and pain meds elevated uric acid started on allopurinol alkalization of urine contnue same for now appreciate urology and nephrology inputs Bulky Abdominopelvic Lymphadenopathy: Highly suspicious for Lymphoma. started on allopurinol heme/onco consulted and appreciate inputs plan for biopsy in am by surgery DVT PROPHYLAXIS scds DISPOSITION to be determined Vital Signs: Date Time Temp Pulse Resp B/P Pulse Ox O2 Delivery O2 Flow Rate FiO2 06/21/16 14:55 36.7 80 14 119/70 96 Room Air 06/21/16 07:37 Room Air 06/21/16 07:30 36.6 76 18 119/69 96 Room Air 06/20/16 23:55 Room Air 06/20/16 23:10 36.8 85 18 150/82 96 Room Air Lab Results: Results Past 24 Hours Test 06/21/16 06:05 06/21/16 11:45 Range/Units Hepatitis B Surface Antigen NEG NEG Hepatitis C Antibody NEG NEG Urine Color YELLOW Urine Appearance CLEAR CLEAR Urine pH 7.0 4.5-7.5 Urine Specific [place] 1.006 1.000-1.030 Urine Protein 2+ NEG Urine Glucose (UA) NEG NEG Urine Ketones NEG NEG Urine Occult Blood NEG NEG Urine Nitrite NEG NEG Urine Bilirubin NEG NEG Urine Urobilinogen NEG NEG Urine Leukocyte Esterase NEG NEG Urine WBC (Auto) 1-5 0-5 /hpf Urine RBC (Auto) 0-4 0-4 /hpf Urine Hyaline Casts (Auto) 1-5 0-5 /lpf Urine Epithelial Cells (Auto) 10-20 0-5 /lpf Urine Bacteria (Auto) NEG NEG
[2016-06-21] MEDS: TAMSULOSIN HCL 0.4 MG CAP PO SCH (20:35)
[2016-06-21 23:03] VITALS: BP 145/83; PULSE 85; TEMP 36.8; O2SAT 94
[2016-06-22] VITALS (9 sets, daily range): BP systolic 118–158; BP diastolic 69–88; PULSE 78–112; TEMP 36.2–36.8; O2SAT 92–96
[2016-06-22] MEDS: SODIUM CHLORIDE 0.9% 1000ML 1,000 ML IV SCH ×2 (01:28→14:49)
[2016-06-22] MEDS ORDERED: EpHEDrine SULFATE INJ 50 MG/ML AMP IV PRN ×2 (07:30→10:15)
[2016-06-22] MEDS ORDERED: ATROPINE SULFATE 0.1 MG/ML 5ML SYR IV PRN ×2 (07:30→10:15)
[2016-06-22] MEDS ORDERED: HYDROmorphone INJ 1 MG/ML SYR IV PRN (07:30)
[2016-06-22] MEDS ORDERED: ONDANSETRON INJ 2 MG/ML 2 ML VIAL IV PRN ×2 (07:30→10:15)
[2016-06-22] MEDS ORDERED: FENTANYL CITRATE INJ 50 MCG/1 ML 2 ML VIAL IV PRN ×2 (07:30→10:15)
[2016-06-22] MEDS: POTASSIUM CITRATE 10 MEQ TAB PO SCH ×3 (08:30→18:04)
[2016-06-22] MEDS: SODIUM BICARBONATE 650 MG TAB PO SCH ×3 (09:00→20:55)
[2016-06-22] MEDS ORDERED: LIDOCAINE HCL 2% 2 ML VIAL (20MG/ML) ONE (09:59)
[2016-06-22] MEDS ORDERED: ONDANSETRON INJ 2 MG/ML 2 ML VIAL ONE (09:59)
[2016-06-22] MEDS ORDERED: MIDAZOLAM HCL 1 MG/ML 2ML VIAL ONE (09:59)
[2016-06-22] MEDS ORDERED: PROPOFOL IV EMULSION 10 MG/ML 20 ML VIAL IV ONE (09:59)
[2016-06-22] MEDS ORDERED: DEXAMETHASONE SOD INJ 4 MG/ML VIAL ONE (09:59)
[2016-06-22] MEDS ORDERED: FENTANYL CITRATE INJ 50 MCG/1 ML 2 ML VIAL ONE (10:00)
[2016-06-22] MEDS ORDERED: BUPIVACAINE 0.5 % 5 MG/1 ML MPF 30ML VIAL INJ ONE (11:27)
[2016-06-22] MEDS ORDERED: LIDOCAINE 1% INJ ONE (11:27)
--- NOTE | 2016-06-22 11:55 | [facility] Post Operative Brief Note ---
Immediate Operative Summary Operative Date Jun 22, 2016. Pre-Operative Diagnosis Lymphodenopathy Post-Operative Diagnosis Lymphodenopathy Procedure(s) Performed Excisional Biopsy Left Axillary Lymph Node Surgeon Dr. Candelaria [employer] Surgeon(s) none Estimated Blood Loss 3 ml Findings See dictation Specimens A. Left Axillary Lymph Node (sent FRESH to lab at 1115) Drains None Anesthesia General Complication(s) None Disposition Recovery Room / PACU
[2016-06-22] MEDS ORDERED: MoRPHine SULFATE 4 MG/ML 1 ML CARP\\VIAL IV PRN (12:00)
--- NOTE | 2016-06-22 12:44 | Anesthesiology Progress Note ---
Anesthesia Post Op Note Date & Time Jun 22, 2016 at 12:44 Vital Signs Pain Intensity: 0 Vital Signs Past 12 Hours Date Time Temp Pulse Resp B/P Pulse Ox O2 Delivery O2 Flow Rate FiO2 06/22/16 12:30 109 18 95 06/22/16 12:30 108 18 06/22/16 12:28 130/81 06/22/16 12:25 100 19 06/22/16 12:25 101 19 94 06/22/16 12:24 100 15 06/22/16 12:24 99 15 94 06/22/16 12:23 137/82 06/22/16 12:19 107 16 06/22/16 12:19 107 16 93 06/22/16 12:18 123/75 06/22/16 12:14 110 14 06/22/16 12:14 110 14 92 06/22/16 12:13 124/77 06/22/16 12:09 101 16 95 06/22/16 12:09 101 16 06/22/16 12:08 98 17 06/22/16 12:08 100 17 126/71 96 06/22/16 12:03 89 16 06/22/16 12:03 89 16 125/70 95 06/22/16 11:58 95 16 06/22/16 11:58 95 16 108/68 95 06/22/16 11:53 95 19 06/22/16 11:53 36.8 90 16 115/64 95 Mask 10 06/22/16 11:53 92 19 122/71 94 06/22/16 10:16 94 Room Air 06/22/16 07:51 Room Air 06/22/16 07:19 36.7 78 18 118/75 92 Room Air Notes Mental Status: alert / awake / arousable, participated in evaluation Pt Amnestic to Procedure: Yes Nausea / Vomiting: adequately controlled Pain: adequately controlled Airway Patency, RR, SpO2: stable & adequate BP & HR: stable & adequate Hydration State: stable & adequate Anesthetic Complications: no major complications apparent
[2016-06-22] MEDS: OXYCODONE/ACETAMINOPHEN 5-325 TAB PO PRN ×2 (13:28→23:27)
[2016-06-22] MEDS: ALLOPURINOL 100 MG TAB PO SCH (13:29)
[2016-06-22] MEDS: CEFTRIAXONE SOD INJ 1 GM in DEXTROSE 5% ADD-VANTAGE 50ML 50 ML IV SCH (13:33)
--- NOTE | 2016-06-22 14:09 | OPERATIVE REPORT ---
DATE OF OPERATION: 06/22/2016 PREOPERATIVE DIAGNOSIS: Lymphadenopathy. POSTOPERATIVE DIAGNOSIS: Same. PROCEDURE: Excisional biopsy of left axillary lymph node. SURGEON: Dr. Candelaria. FINDINGS: The patient had multiple lymph nodes. There was one that measured at least 2.5-3 cm in greatest dimension. It was easily . OPERATION AND FINDINGS: TECHNIQUE: The patient was given a general anesthetic and the area was prepped and draped in usual sterile fashion. The lymph node was palpable in the axilla. The skin for the planned incision was anesthetized with 1% Xylocaine without epinephrine. Skin incision was made, carried down through the subcutaneous tissue using cautery to the axillary fascia, which was opened. Further dissection was carried out until the lymph node could be easily palpated. The tissue surrounding was grasped and elevated and it was then from the surrounding tissues using the LigaSure. It was removed in total. The area was inspected for bleeding and none was seen. The wound was irrigated and irrigation removed. The deep tissues were approximated with interrupted 2-0 Vicryl. The deep subcutaneous tissue was closed with running 2-0 Vicryl. The superficial subcutaneous tissue was closed with running 3-0 Vicryl and skin was closed with 4-0 Monocryl in a running subcuticular fashion. The skin was cleansed, dried, benzoin placed, Steri-Strips applied. Estimated blood loss was 3 mL. Sponge, needle and instrument counts were correct prior to closure. The patient tolerated surgical procedure without complication and was transferred to recovery. I attest to the content of the Intraoperative Record and any orders documented therein. Any exceptio ns are noted below.
--- NOTE | 2016-06-22 19:39 | Progress Note ---
Internal Med Progress Note Date of Service: Jun 22, 2016. Provider Documentation: SUBJECTIVE: s/p left axillary lymph node biopsy has some pain at biopsy site eating ok no sob OBJECTIVE: Vital Signs-as noted below Exam: General-alert and oriented ENT-normal hearing Neck-no neck masses Lungs-cta b/l no wheezing or crackles Heart-s1 and s2 heard regular rate and rhythm no murmurs Abdomen-soft bowel sounds present non tender no distension Extremities-no erythema s/p left axilla lymph node biopsy Neuro-alert and awake moves extremities Lab data as noted below. ASSESSMENT & PLAN: Left Sided Obstructing Renal Stone: Admit to medical floor. on fluids and pain meds elevated uric acid started on allopurinol alkalization of urine contnue same for now appreciate urology and nephrology inputs stable Bulky Abdominopelvic Lymphadenopathy: Highly suspicious for Lymphoma. started on allopurinol heme/onco consulted and appreciate inputs s/p biopsy iof left axillary lymph nodes by surgery DVT PROPHYLAXIS scds DISPOSITION possible d/c in am Vital Signs: Date Time Temp Pulse Resp B/P Pulse Ox O2 Delivery O2 Flow Rate FiO2 06/22/16 19:23 36.6 99 16 138/78 96 Nasal Cannula 2.0 06/22/16 16:20 36.2 89 16 136/88 92 Room Air 06/22/16 15:24 Room Air 06/22/16 15:08 36.7 91 18 132/82 93 Room Air 06/22/16 14:05 36.6 86 16 129/83 93 Room Air 06/22/16 13:35 36.7 86 19 127/82 93 Room Air 06/22/16 12:57 36.4 112 18 143/88 96 Room Air 06/22/16 12:30 109 18 95 06/22/16 12:30 108 18 06/22/16 12:28 130/81 06/22/16 12:25 100 19 06/22/16 12:25 101 19 94 06/22/16 12:24 100 15 06/22/16 12:24 99 15 94 06/22/16 12:23 137/82 06/22/16 12:19 107 16 06/22/16 12:19 107 16 93 06/22/16 12:18 123/75 06/22/16 12:14 110 14 06/22/16 12:14 110 14 92 06/22/16 12:13 124/77 06/22/16 12:09 101 16 95 06/22/16 12:09 101 16 06/22/16 12:08 98 17 06/22/16 12:08 100 17 126/71 96 06/22/16 12:03 89 16 06/22/16 12:03 89 16 125/70 95 06/22/16 11:58 95 16 06/22/16 11:58 95 16 108/68 95 06/22/16 11:53 95 19 06/22/16 11:53 36.8 90 16 115/64 95 Mask 10 06/22/16 11:53 92 19 122/71 94 06/22/16 10:16 94 Room Air 06/22/16 07:51 Room Air 06/22/16 07:19 36.7 78 18 118/75 92 Room Air 06/21/16 23:03 36.8 85 18 145/83 94 Room Air 06/21/16 19:40 Room Air Lab Results: Results Past 24 Hours Test 06/22/16 10:30 Range/Units
[2016-06-22] MEDS: TAMSULOSIN HCL 0.4 MG CAP PO SCH (20:55)
--- NOTE | 2016-06-22 21:36 | Nephrology Progress Note ---
Nephrology Progress Note Date of Service: Jun 22, 2016. Subjective 35 yo male with uric acid stone currently being alkalinized with findings on ct scan suggestive of lymphoma. pt underwent lymph node biopsy today by surgery. tolerated procedure well. mother in room. mother is a nurse in [place]. Objective Date Time Temp Pulse Resp B/P Pulse Ox O2 Delivery O2 Flow Rate FiO2 06/22/16 19:23 36.6 99 16 138/78 96 Nasal Cannula 2.0 06/22/16 16:20 36.2 89 16 136/88 92 Room Air 06/22/16 15:24 Room Air 06/22/16 15:08 36.7 91 18 132/82 93 Room Air 06/22/16 14:05 36.6 86 16 129/83 93 Room Air 06/22/16 13:35 36.7 86 19 127/82 93 Room Air 06/22/16 12:57 36.4 112 18 143/88 96 Room Air 06/22/16 12:30 109 18 95 06/22/16 12:30 108 18 06/22/16 12:28 130/81 06/22/16 12:25 100 19 06/22/16 12:25 101 19 94 06/22/16 12:24 100 15 06/22/16 12:24 99 15 94 06/22/16 12:23 137/82 06/22/16 12:19 107 16 06/22/16 12:19 107 16 93 06/22/16 12:18 123/75 06/22/16 12:14 110 14 06/22/16 12:14 110 14 92 06/22/16 12:13 124/77 06/22/16 12:09 101 16 95 06/22/16 12:09 101 16 06/22/16 12:08 98 17 06/22/16 12:08 100 17 126/71 96 06/22/16 12:03 89 16 06/22/16 12:03 89 16 125/70 95 06/22/16 11:58 95 16 06/22/16 11:58 95 16 108/68 95 06/22/16 11:53 95 19 06/22/16 11:53 36.8 90 16 115/64 95 Mask 10 06/22/16 11:53 92 19 122/71 94 06/22/16 10:16 94 Room Air 06/22/16 07:51 Room Air 06/22/16 07:19 36.7 78 18 118/75 92 Room Air 06/21/16 23:03 36.8 85 18 145/83 94 Room Air Physical Exam: General-aaox3 Eyes-no scleral icterus ENT-mmm Neck-supple Lungs-cta Heart-rrr Abdomen-bs+ s/nt/nd Extremities-no edema Neuro-nonfocal Current Inpatient Medications Medications (Trade) Dose Ordered Sig/Billy Route Start Time Stop Time Status Last Admin Dose Admin Acetaminophen (Tylenol Tab) 650 mg Q4H PRN PO 06/19/16 11:45 07/19/16 11:44 06/21/16 17:48 650 MG Al Hydrox/Mg Hydrox/Simethicone (Maalox Max Susp) 15 ml Q4H PRN PO 06/19/16 11:45 07/19/16 11:44 Magnesium Hydroxide (Milk Of Magnesia Susp) 30 ml Q6H PRN PO 06/19/16 11:45 07/19/16 11:44 Zolpidem Tartrate (Ambien Tab) 5 mg HSZ PRN PO 06/19/16 11:45 07/19/16 11:44 Ondansetron HCl 4 mg 4 mg Q6H PRN IV 06/19/16 11:45 07/19/16 11:44 Sodium Chloride 1,000 ml @ 80 mls/hr [id number] IV 06/19/16 11:45 07/19/16 11:44 06/22/16 14:49 80 MLS/HR Ceftriaxone Sodium/Dextrose (Rocephin Inj/ Dextrose Add-[place] 50ML) 50 ml @ 100 mls/hr Q24H IV 06/19/16 14:00 06/29/16 11:44 06/22/16 13:33 100 MLS/HR Tamsulosin HCl (Flomax Cap) 0.4 mg HS PO 06/19/16 21:00 07/19/16 20:59 06/22/16 20:55 0.4 MG Sodium Bicarbonate (Sodium Bicarbonate Tab) 1,300 mg TID PO 06/19/16 21:00 07/19/16 20:59 06/22/16 20:55 1,300 MG Potassium Citrate (Urocit-K Tab) 10 meq TIDM PO 06/20/16 08:30 07/20/16 08:29 06/22/16 18:04 10 MEQ Allopurinol (Zyloprim Tab) 100 mg DAILY PO 06/19/16 20:30 07/19/16 20:29 06/22/16 13:29 100 MG Lorazepam (Ativan Tab) 1 mg TID PRN PO 06/21/16 13:30 07/21/16 13:29 Morphine Sulfate (MoRPHine SULFATE INJ) 4 mg Q1H PRN IV 06/22/16 12:00 07/06/16 11:59 Oxycodone/ Acetaminophen (Percocet 5-325mg Tab) 1 tab Q4H PRN PO 06/22/16 12:00 07/06/16 11:59 06/22/16 13:28 1 TAB Last 24 Hours Test 06/22/16 10:30 Assessment & Plan uric acid stones-alkalinizing urine and urine ph was 7 today. appropriately alkaline. hepatitis negative. to check bmp tomorrow to follow k trend since pt is on urocit-k. if k stable, ok from renal perspective to go home once medically cleared by hospitalist.
[2016-06-23] MEDS: SODIUM CHLORIDE 0.9% 1000ML 1,000 ML IV SCH (02:50)
[2016-06-23 04:07] VITALS: BP 143/77; PULSE 90; TEMP 36.8; O2SAT 94
[2016-06-23 07:07] VITALS: BP 121/88; PULSE 81; TEMP 36.5; O2SAT 98
[2016-06-23 07:31] LABS: HEMATOCRIT 39.9 % (42-52); MEAN CORPUSCULAR HEMOGLOBIN 25.6 pg (25-34); MEAN CORPUSCULAR HGB CONC 34.1 g/dl (32-36); MEAN PLATELET VOLUME 10.8 fL (7.4-10.4); PLATELET COUNT 272 K/uL (130-400); RED BLOOD COUNT 5.32 M/uL (4.7-6.1)
--- NOTE | 2016-06-23 07:35 | Anesthesiology Progress Note ---
Anesthesia Post Op Note Date & Time Jun 23, 2016 at 07:35 Vital Signs Vital Signs Past 12 Hours Date Time Temp Pulse Resp B/P Pulse Ox O2 Delivery O2 Flow Rate FiO2 06/23/16 07:07 36.5 81 20 121/88 98 Room Air 06/23/16 04:07 36.8 90 16 143/77 94 Room Air 06/22/16 23:15 36.8 100 16 158/69 94 Room Air 06/22/16 19:50 Nasal Cannula 1.0 Notes Mental Status: alert / awake / arousable, participated in evaluation Pt Amnestic to Procedure: Yes Nausea / Vomiting: adequately controlled Pain: adequately controlled Airway Patency, RR, SpO2: stable & adequate BP & HR: stable & adequate Hydration State: stable & adequate Anesthetic Complications: no major complications apparent
[2016-06-23 07:59] LABS: CALCIUM 9.1 mg/dl (8.5-10.1); CREATININE 0.89 mg/dl (0.60-1.40); POTASSIUM 3.8 mmol/L (3.5-5.1)
[2016-06-23] MEDS: SODIUM BICARBONATE 650 MG TAB PO SCH ×2 (09:20→14:16)
[2016-06-23] MEDS: POTASSIUM CITRATE 10 MEQ TAB PO SCH ×2 (09:21→12:29)
[2016-06-23] MEDS: ALLOPURINOL 100 MG TAB PO SCH (09:21)
--- NOTE | 2016-06-23 10:35 | Progress Note ---
Subjective Date of Service: Jun 23, 2016. Subjective Pt evaluation today including: conversation w/ patient, physical exam, chart review Voiding: no voiding problems Patient with appropriate soreness left axilla from biopsy worried and having problems with anxiety voiding well no change to renal colic. Had a brief self limiting episode of left flank pain yesterday. no pain now. Problem List Medical Problems: (1) Intra-abdominal lymphadenopathy Status: Acute (2) Renal colic Status: Acute Review of Systems Constitutional: No chills, No fever, No weakness, No weight loss Cardiac: + chest pain, + palpitations Abdomen: No constipation, No diarrhea, No nausea, No vomiting Male : No hematuria, No nocturia more than once/night, No urinary frequency Objective Vital Signs Date Time Temp Pulse Resp B/P Pulse Ox O2 Delivery O2 Flow Rate FiO2 06/23/16 07:07 36.5 81 20 121/88 98 Room Air 06/23/16 04:07 36.8 90 16 143/77 94 Room Air 06/22/16 23:15 36.8 100 16 158/69 94 Room Air 06/22/16 19:50 Nasal Cannula 1.0 06/22/16 19:23 36.6 99 16 138/78 96 Nasal Cannula 2.0 06/22/16 16:20 36.2 89 16 136/88 92 Room Air 06/22/16 15:24 Room Air 06/22/16 15:08 36.7 91 18 132/82 93 Room Air 06/22/16 14:05 36.6 86 16 129/83 93 Room Air 06/22/16 13:35 36.7 86 19 127/82 93 Room Air 06/22/16 12:57 36.4 112 18 143/88 96 Room Air 06/22/16 12:30 109 18 95 06/22/16 12:30 108 18 06/22/16 12:28 130/81 06/22/16 12:25 100 19 06/22/16 12:25 101 19 94 06/22/16 12:24 100 15 06/22/16 12:24 99 15 94 06/22/16 12:23 137/82 06/22/16 12:19 107 16 06/22/16 12:19 107 16 93 06/22/16 12:18 123/75 06/22/16 12:14 110 14 06/22/16 12:14 110 14 92 06/22/16 12:13 124/77 06/22/16 12:09 101 16 95 06/22/16 12:09 101 16 06/22/16 12:08 98 17 06/22/16 12:08 100 17 126/71 96 06/22/16 12:03 89 16 06/22/16 12:03 89 16 125/70 95 06/22/16 11:58 95 16 06/22/16 11:58 95 16 108/68 95 06/22/16 11:53 95 19 06/22/16 11:53 36.8 90 16 115/64 95 Mask 10 06/22/16 11:53 92 19 122/71 94 Physical Exam General Appearance: WD/WN, no apparent distress, + obese Eyes: normal inspection ENT: hearing grossly normal Respiratory/Chest: no respiratory distress, no accessory muscle use Neurologic/Psychiatric: alert, normal mood/affect, oriented x 3 Laboratory Results Last 24 Hours Test 06/23/16 06:05 White Blood Count 11.90 K/uL Red Blood Count 5.32 M/uL Hemoglobin 13.6 g/dL Hematocrit 39.9 % Mean Corpuscular Volume 75.0 fL Mean Corpuscular Hemoglobin 25.6 pg Mean Corpuscular Hemoglobin Concent 34.1 g/dl RDW Standard Deviation 39.3 fL RDW Coefficient of Variation 14.5 % Platelet Count 272 K/uL Mean Platelet Volume 10.8 fL Sodium Level 141 mmol/L Potassium Level 3.8 mmol/L Chloride Level 107 mmol/L Carbon Dioxide Level 21 mmol/L Anion Gap 13.0 mmol/L Blood Urea Nitrogen 14 mg/dl Creatinine 0.89 mg/dl Est Creatinine Clear Calc Drug Dose 148.0 ml/min Estimated GFR () 129.3 Estimated GFR (Non- 111.6 BUN/Creatinine Ratio 16.0 Random Glucose 95 mg/dl Calcium Level 9.1 mg/dl Assessment and Plan left distal ureteral stone no hydro no colic normal bun/cr will continue with urinary alkalinization. going well and urine pH 7.0 when last checked. Will need renal u/s in one month unless he retrieves a stone he passes or he gets severe colic and we have to remove stone surgically in next few weeks Hope to melt the stone small enough to pass.
[2016-06-23] MEDS: CEFTRIAXONE SOD INJ 1 GM in DEXTROSE 5% ADD-VANTAGE 50ML 50 ML IV SCH (14:16)
[2016-06-23] MEDS ORDERED: ALL100 PO (14:38)
[2016-06-23] MEDS ORDERED: SODI650T9 PO (14:38)
[2016-06-23] MEDS ORDERED: ATV1 PO (14:38)
[2016-06-23] MEDS ORDERED: OXYC-57 PO (14:38)
[2016-06-23] MEDS ORDERED: FLM4 PO (14:38)
[2016-06-23] MEDS ORDERED: URC10 PO (14:38)
--- NOTE | 2016-06-23 14:45 | Discharge Instructions ---
Discharge Instructions Admission Reason for Admission: Renal Calculus Discharge Discharge Diagnosis / Problem: renal calculus, hyperuricemia, bulky lymphadenopathy Discharge Goals Goal(s): Decrease discomfort, Improve function Activity Recommendations Activity Limitations: resume your previous activity . Instructions / Follow-Up Instructions / Follow-Up FOLLOWUP WITH FAMILY DOCTOR IN ONE WEEK FOLLOWUP WITH HEMATOLOGY/ONCOLOGY DR.NILESH MACIAS IN ONE WEEK ( [address], [place] [address] ). FOLLOW UP WITH UROLOGY IN ONE MONTH ([address] [place] [address] ) CONTINUE SODIUM BICARBONATE TABLETS AND POTASSIUM CITRATE TABLETS PRESCRIBED UNTIL FURTHER NOTICE FROM UROLOGY. FOLLOWUP WITH GENERAL SURGERY DR.MARK LEE IN 2 WEEKS TO LOOK AT THE BIOPSY SITE.( [address] [place] [address] ) Current Hospital Diet Patient's current hospital diet: Regular Diet Discharge Diet Recommended Diet: Regular Diet Procedures Procedures Performed: Excisional Biopsy Left Axillary Lymph Node Pending Studies Studies pending at discharge: yes List of pending studies: BIPOSY RESULTS Medical Emergencies . Who to Call and When: Medical Emergencies: If at any time you feel your situation is an emergency, please call 911 immediately. . Non-Emergent Contact Non-Emergency issues call your: Primary Care Provider . . "Provider Documentation" section prepared by Faustino Dillon. VTE Core Measure Inpt VTE Proph given/why not?: SCD's
[2016-06-23 15:06] VITALS: BP 121/88; PULSE 81; TEMP 36.5; O2SAT 98
--- NOTE | 2016-06-23 16:34 | Progress Note ---
Internal Med Progress Note Date of Service: Jun 23, 2016. Provider Documentation: SUBJECTIVE: s/p left axillary lymph node biopsy yesterday has some pain at biopsy site no nausea afebrile requests for anxiety and pain meds to go home OBJECTIVE: Vital Signs-as noted below Exam: General-alert and oriented ENT-normal hearing Neck-no neck masses Lungs-cta b/l no wheezing or crackles Heart-s1 and s2 heard regular rate and rhythm no murmurs Abdomen-soft bowel sounds present non tender no distension Extremities-no erythema s/p left axilla lymph node biopsy Neuro-alert and awake moves extremities Lab data as noted below. ASSESSMENT & PLAN: Left Sided Obstructing Renal Stone: Admit to medical floor. on fluids and pain meds elevated uric acid started on allopurinol alkalization of urine continue same for now appreciate urology and nephrology inputs stable f/u with urology in one month with renal US continue alkalization of urine until seen by urology Bulky Abdominopelvic Lymphadenopathy: Highly suspicious for Lymphoma. started on allopurinol heme/onco consulted and appreciate inputs s/p biopsy of left axillary lymph nodes by surgery f/u with heme/oncology for results followup with surgery in 2 weeks to check biopsy site discharged Vital Signs: Date Time Temp Pulse Resp B/P Pulse Ox O2 Delivery O2 Flow Rate FiO2 06/23/16 15:06 36.5 81 20 98 Room Air 06/23/16 08:17 Room Air 06/23/16 07:07 36.5 81 20 121/88 98 Room Air 06/23/16 04:07 36.8 90 16 143/77 94 Room Air 06/22/16 23:15 36.8 100 16 158/69 94 Room Air 06/22/16 19:50 Nasal Cannula 1.0 06/22/16 19:23 36.6 99 16 138/78 96 Nasal Cannula 2.0 Lab Results: Results Past 24 Hours Test 06/23/16 06:05 Range/Units White Blood Count 11.90 4.8-10.8 K/uL Red Blood Count 5.32 4.7-6.1 M/uL Hemoglobin 13.6 14.0-18.0 g/dL Hematocrit 39.9 42-52 % Mean Corpuscular Volume 75.0 80-100 fL Mean Corpuscular Hemoglobin 25.6 25-34 pg Mean Corpuscular Hemoglobin Concent 34.1 32-36 g/dl RDW Standard Deviation 39.3 36.4-46.3 fL RDW Coefficient of Variation 14.5 11.5-14.5 % Platelet Count 272 130-400 K/uL Mean Platelet Volume 10.8 7.4-10.4 fL Sodium Level 141 136-145 mmol/L Potassium Level 3.8 3.5-5.1 mmol/L Chloride Level 107 98-107 mmol/L Carbon Dioxide Level 21 21-32 mmol/L Anion Gap 13.0 3-11 mmol/L Blood Urea Nitrogen 14 7-18 mg/dl Creatinine 0.89 0.60-1.40 mg/dl Est Creatinine Clear Calc Drug Dose 148.0 ml/min Estimated GFR () 129.3 Estimated GFR (Non- 111.6 BUN/Creatinine Ratio 16.0 10-20 Random Glucose 95 70-99 mg/dl Calcium Level 9.1 8.5-10.1 mg/dl
--- NOTE | 2016-06-23 18:10 | Progress Note ---
Internal Med Progress Note Date of Service: Jun 23, 2016. Provider Documentation: SUBJECTIVE: s/p left axillary lymph node biopsy has some pain at biopsy site afebrile eating ok ok for discharge and out patient followup OBJECTIVE: Vital Signs-as noted below Exam: General-alert and oriented ENT-normal hearing Neck-no neck masses Lungs-cta b/l no wheezing or crackles Heart-s1 and s2 heard regular rate and rhythm no murmurs Abdomen-soft bowel sounds present non tender no distension Extremities-no erythema s/p left axilla lymph node biopsy Neuro-alert and awake moves extremities Lab data as noted below. ASSESSMENT & PLAN: Left Sided Obstructing Renal Stone: Admitted to medical floor. on fluids and pain meds elevated uric acid started on allopurinol alkalization of urine continue same for now appreciate urology and nephrology inputs stable f/u with urology in one month with renal US continue alkalization of urine until seen by urology Bulky Abdominopelvic Lymphadenopathy: Highly suspicious for Lymphoma. started on allopurinol heme/onco consulted and appreciate inputs s/p biopsy of left axillary lymph nodes by surgery f/u with heme/oncology for results followup with surgery in 2 weeks to check biopsy site discharged Vital Signs: Lab Results:
--- NOTE | 2016-06-29 12:08 | Discharge Summary ---
Discharge Summary Admission Date: Jun 19, 2016 at 11:41 Discharge Date: Jun 23, 2016 Discharge Disposition: Home Principal Diagnosis: renal calculi LYMPHOMA? s/p biposy of left axillary lymph nodes Procedures: CT HEAD: No acute intracranial findings CT ABD/PELVIS: 1. There is a 10 mm obstructing calculus in the distal left ureter approximately 2.5 cm above the vesicoureteral junction. This causes mild left hydroureteronephrosis. 2. Additional bilateral nonobstructing renal calculi as above. 3. Bulky abdominopelvic lymphadenopathy as above, greatest involving the upper abdominal, retroperitoneal, and iliac chains. The appearance is highly concerning for a lymphoproliferative disorder. 4. Splenomegaly. 5. Hepatomegaly and hepatic steatosis. CHEST CT: Mild lymphadenopathy within the chest as described above. This highly suspicious for a lymphoproliferative disorder. LEFT AXILLARY US: Several mildly enlarged left axillary lymph nodes. RIGHT AXILLARY US: A few borderline enlarged right axillary lymph nodes. Consultations: UROLOGY NEPHROLOGY HEME/ONCO GENERAL SURGERY Pending Studies/Follow-Up: LEFT AXILLARY LYMPH NODE BIOPSY RESULTS Medication Reconciliation New Medications: Allopurinol (Allopurinol) 100 Mg Tab 100 MG PO DAILY, #30 TAB 2 Refills Lorazepam (Lorazepam) 1 Mg Tab 1 MG PO BID PRN for Anxiety, #30 TAB Oxycodone/Acetaminophen 5MG/325MG (Percocet 5MG/325MG) Tab 1 TAB PO Q6 PRN for Pain, #24 TAB PAIN Potassium Citrate (Potassium Citrate) 10 Meq Tab 10 MEQ PO TIDM for 30 Days, TAB 1 Refill Sodium Bicarbonate (Sodium Bicarbonate) 650 Mg Tab 1300 MG PO TID for 30 Days, #180 TAB 1 Refill Tamsulosin HCl (Tamsulosin HCl) 0.4 Mg Cap 0.4 MG PO HS, #30 CAP 2 Refills Admission Information HPI (per Admitting provider): 35 year old male with non-significant past medical history who presents to the ER with chief complaint of intermittent stabbing pains to his right back since passing a kidney stone last week. Currently, while resting, the patient denies being in significant discomfort, however his pain is exacerbated with standing, and reaches a 7/10 on the pain scale of 0-10. Prior to passing the kidney stone last week, patient visited the ED on June 08 as he was having dysuria and urinary retention. Patient was placed on Bactrim for presumed UTI at that time, but he did not have any imaging done. The patient states that he did take the Bactrim & recently passed first kidney stone last week. He has been experiencing abdominal pain/cramps, back spasms, Vague numbness/ tingling of the upper & lower extremities especially at night time. Denied any recent travel. Hospital Course Left Sided Obstructing Renal Stone: Admitted to medical floor. on fluids and pain meds elevated uric acid started on allopurinol alkalization of urine continue same for now appreciate urology and nephrology inputs stable f/u with urology in one month with renal US continue alkalization of urine until seen by urology Bulky Abdominopelvic Lymphadenopathy: Highly suspicious for Lymphoma. started on allopurinol heme/onco consulted and appreciate inputs s/p biopsy of left axillary lymph nodes by surgery f/u with heme/oncology for results followup with surgery in 2 weeks to check biopsy site discharged Total time spent on discharge = 35MINUTES This includes examination of the patient, discharge planning, medication reconciliation, and communication with other providers. Discharge Instructions Please take this sheet to every appointment for the next month Discharge Instructions Admission Reason for Admission: Renal Calculus Discharge Discharge Diagnosis / Problem: renal calculus, hyperuricemia, bulky lymphadenopathy Discharge Goals Goal(s): Decrease discomfort, Improve function Activity Recommendations Activity Limitations: resume your previous activity . Instructions / Follow-Up Instructions / Follow-Up FOLLOWUP WITH FAMILY DOCTOR IN ONE WEEK FOLLOWUP WITH HEMATOLOGY/ONCOLOGY DR.NILESH MACIAS IN ONE WEEK ( [address] [facility] [place] [address] ). FOLLOW UP WITH UROLOGY IN ONE MONTH ([address] [place] [address] ) CONTINUE SODIUM BICARBONATE TABLETS AND POTASSIUM CITRATE TABLETS PRESCRIBED UNTIL FURTHER NOTICE FROM UROLOGY. Current Hospital Diet Patient's current hospital diet: Regular Diet Discharge Diet Recommended Diet: Regular Diet Procedures Procedures Performed: Excisional Biopsy Left Axillary Lymph Node Pending Studies Studies pending at discharge: yes List of pending studies: BIPOSY RESULTS Medical Emergencies . Who to Call and When: Medical Emergencies: If at any time you feel your situation is an emergency, please call 911 immediately. . Non-Emergent Contact Non-Emergency issues call your: Primary Care Provider . . "Provider Documentation" section prepared by Faustino Dillon. VTE Core Measure Inpt VTE Proph given/why not?: SCD's
== END 2016-06-23 16:15 | disposition home or self-care (01) | DRG 988 ==
LOC: ENRESERVTM → ENRESERVDT → C.EDB 09:15 → C.MSW 11:41
PROVIDERS: ADMIT Emergency Medicine; ATTEND Internal Medicine
PROC: 07B60ZX Excision of Left Axillary Lymphatic, Open Approach, Diagnostic (ICD-10-PCS; principal; 2016-06-22 12:00)
DX: N13.2 Hydronephrosis with renal and ureteral calculous obstruction (principal); C85.90 Non-Hodgkin lymphoma, unspecified, unspecified site; R35.0 Frequency of micturition; Z83.3 Family history of diabetes mellitus; Z79.899 Other long term (current) drug therapy; Z87.440 Personal history of urinary (tract) infections; R35.1 Nocturia; E66.9 Obesity, unspecified; F41.9 Anxiety disorder, unspecified